=== PATIENT | female | born 1935 | race Two or more races ===

== ENCOUNTER 2017-01-12 08:39 | Emergency (ER) | payer BC, OTHER ==
[2017-01-12 09:03] VITALS: BMI 26.9
[2017-01-12] MEDS ORDERED: LACTULOSE 20 GM/30 ML UDC (FOR ORAL USE ONLY) PO ONE (09:23)
--- NOTE | 2017-01-12 09:23 | PDOC ---
History of Present Illness - General Chief Complaint: Constipation Stated Complaint: VOMITING/NO BM 4 DAYS Time Seen by Provider: 01/12/17 09:06 Past History - Past Medical History Allergies/Adverse Reactions: Allergies Allergy/AdvReac Type Severity Reaction Status Date / Time No Known Allergies Allergy Verified 01/12/17 08:53 Home Medications: Ambulatory Orders Gabapentin 300 mg PO Q12H 08/02/14 Gabapentin 600 mg PO HS 08/02/14 Levothyroxine [Synthroid -] 125 mcg PO DAILY 08/02/14 Valsartan 160 mg PO DAILY 08/02/14 Docusate Sodium [Colace -] 100 mg PO DAILY #30 capsule 01/12/17 Sennosides [Senna] 2 tab PO DAILY #60 tablet 01/12/17 HTN: Yes Other medical history: neuropathy - Psycho/Social/Smoking Cessation Hx Anxiety: No Suicidal Ideation: No Smoking History: Never smoked Information on smoking cessation initiated: No Hx Alcohol Use: No Drug/Substance Use Hx: No Substance Use Type: None *Physical Exam - Vital Signs Last Vital Signs Temp Pulse Resp BP Pulse Ox 98.2 F 76 18 155/91 99 01/12/17 08:51 01/12/17 08:51 01/12/17 08:51 01/12/17 08:51 01/12/17 08:51 ED Treatment Course - LABORATORY CBC & Chemistry Diagram: 01/12/17 11:55 01/12/17 11:55 Medical Decision Making - Medical Decision Making 01/12/17 09:13 81 yo F, h/o HTN, neuropathy, presents with constipation. Patient reports that she has not had a bowel movement in 4 days despite having an urge. No bright red blood per rectum, melena, abdominal pain, rectal pain, fever or chills. Did have nausea this a.m. that has since resolved. Patient states at baseline she has approximately 3 bowel movements per week. No recent change in diet. No new medications. See exam Constipation No new meds/narcotic use/change in diet No prior abd surgery Not impacted on exam Abd benign -XR -bowel regimen in ED>reassess 01/12/17 10:18 XR w/ sig stool, no e/o obstruction. Bowel regimen in progress>reassess 01/12/17 11:42 Pt s/p bowel regimen w/ no BM in ED. Currently crying as she feels uncomfortable per pt. As per d/w ED atg, will send labs and CT at this point 01/12/17 14:23 CT and labs unremarkable. Pt works that she was able to have one small to moderate bowel movement, feels a bit better and would prefer to go home with a bowel regimen versus further observation in ED. Will discharge in the care of son. Reasons to return discussed with patient and family 01/12/17 14:57 *DC/Admit/Observation/Transfer Diagnosis at time of Disposition: Constipation Qualifiers: Constipation type: unspecified constipation type Qualified Code(s): K59.00 - Constipation, unspecified - Discharge Dispostion Disposition: HOME Condition at time of disposition: Improved - Prescriptions Prescriptions: Docusate Sodium [Colace -] 100 mg PO DAILY #30 capsule Sennosides [Senna] 2 tab PO DAILY #60 tablet - Patient Instructions Printed Discharge Instructions: Constipation Additional Instructions: Please take medications as prescribed. Also drink plenty of fluids and leafy greens to assist with bowel movements. Return to ER for worsening of symptoms. Otherwise follow-up with PMD
[2017-01-12] MEDS ORDERED: LACTULOSE 20 GM/30 ML UDC (FOR ORAL USE ONLY) ONE (09:28)
[2017-01-12] MEDS ORDERED: MINERAL OIL ENEMA 133 ML ENEMA PR ONE (10:18)
[2017-01-12] MEDS ORDERED: SODIUM CHLORIDE 500 ML IV STA (11:43)
[2017-01-12 12:02] LABS: BASOPHIL 0.9 % (0-2.0); EOSINOPHIL 3.3 % (0-4.5); MCH 25.7 pg (25.7-33.7); MCHC 32.8 g/dl (32.0-36.0); MEAN CELL VOLUME 78.4 fl (80-96); MEAN PLT VOLUME 8.3 fl (7.5-11.1); PLATELET COUNT 277 K/MM3 (134-434); RDW 14.2 % (11.6-15.6); WHITE BLOOD COUNT 7.2 K/mm3 (4.0-10.0)
[2017-01-12] MEDS ORDERED: METOCLOPRAMIDE HCL INJECTION 10 MG/2 ML VIAL IVPB ONE (12:17)
[2017-01-12 12:20] LABS: ALBUMIN 4.5 g/dl (3.4-5.0); ALK PHOS 110 U/L (45-117); ANION GAP 11 (8-16); BILIRUBIN,TOTAL 0.4 mg/dL (0.2-1.0); CALCIUM 10.7 mg/dL (8.5-10.1); CO2 25 mmol/L (21-32); CREATININE 0.8 mg/dL (0.55-1.02); GLUCOSE,RANDOM 126 mg/dL (74-106); SGOT/AST 23 U/L (15-37); SGPT/ALT 26 U/L (12-78); TOT PROT 8.1 g/dl (6.4-8.2)
[2017-01-12] MEDS ORDERED: METOCLOPRAMIDE HCL INJECTION 10 MG/2 ML VIAL ONE (12:20)
[2017-01-12 12:28] LABS: URINE APPEARANCE CLEAR; URINE BILIRUBIN NEGATIVE (NEGATIVE); URINE BLOOD NEGATIVE (NEGATIVE); URINE COLOR LTYELLOW; URINE GLUCOSE (UA) NEGATIVE (NEGATIVE); URINE KETONE TRACE (NEGATIVE); URINE LEUK ESTERASE NEGATIVE (NEGATIVE); URINE NITRITE NEGATIVE (NEGATIVE); URINE PROTEIN NEGATIVE (NEGATIVE); URINE UROBILINOGEN NEGATIVE mg/dL (0.2-1.0)
[2017-01-12 14:52] VITALS: BP 155/89; PULSE 82; TEMP 98.3
== END 2017-01-12 15:17 | disposition home or self-care (01) ==
LOC: JER 08:39
PROC: 3E033GC Introduction of Other Therapeutic Substance into Peripheral Vein, Percutaneous Approach (ICD-10-PCS; principal; 2017-01-12)
PROC: 3E0337Z Introduction of Electrolytic and Water Balance Substance into Peripheral Vein, Percutaneous Approach (ICD-10-PCS; 2017-01-12)
DX: K59.00 Constipation, unspecified (principal); I10 Essential (primary) hypertension; G62.9 Polyneuropathy, unspecified
CPT/HCPCS: 36415; 74000-TC; 74177-TC; 80053; 81003; 85025; 96361; 96374; 99283-25

== ENCOUNTER 2019-04-28 16:07 | Inpatient (IN) | payer BC, OTHER ==
--- NOTE | 2019-04-28 16:16 | PDOC ---
Rapid Medical Evaluation Time Seen by Provider: 04/28/19 16:12 Medical Evaluation: Allergies Allergy/AdvReac Type Severity Reaction Status Date / Time No Known Allergies Allergy Verified 01/12/17 08:53 04/28/19 16:13 [place] [facility] [place] PE: Lungs CTAB. RLE swollen and ecchymotic Orders: cardiac w/u and ankle xray Patient will proceed to ED for further evaluation. Discharge Disposition - Diagnosis Syncope and collapse - Referrals - Patient Instructions - Post Discharge Activity
--- NOTE | 2019-04-28 16:31 | PDOC ---
History of Present Illness - General Chief Complaint: Syncope/Near Syncope Stated Complaint: SYNCOPE Time Seen by Provider: 04/28/19 16:12 History Source: Patient Exam Limitations: No Limitations - History of Present Illness Initial Comments: 04/28/19 16:31 Cecille Mckinley is an 83F with PMH HTN, neuropathy, and thyroid disease presenting with mechanical fall and R ankle injury. Patient and son at bedside report that she was walking home from a [place] party on Apr 24, was getting into a car, but then tripped on the sidewalk and fell backwards, twisting her R ankle. Caught herself on the door of the car, went down slowly, firmly denies LOC, head injury, or other bodily injury. Denies prodromal symptoms including fever, dizziness, seizure. EMS called, but patient refused to go to hospital at that time. Since then, has had difficulty with ambulating at home without assistance 2/2 pain, has been using ice and taking Tylenol for pain control. Normally ambulates with a cane at baseline. Went to urgent care who referred her to ED for further evaluation. Denies chest pain, SOB, N/V/C/D, abd pain, [place], vision changes, injury/pain to other parts of her body. Normally highly functional at home, exercises and dances routinely. PMD Dr. Pena. Has known history of LBBB on prior ECG. Past History - Past Medical History Allergies/Adverse Reactions: Allergies Allergy/AdvReac Type Severity Reaction Status Date / Time No Known Allergies Allergy Verified 04/28/19 16:14 Home Medications: Ambulatory Orders Gabapentin 600 mg PO TID 08/02/14 Levothyroxine [Synthroid -] 150 mcg PO DAILY 08/02/14 Valsartan/Hydrochlorothiazide [Valsartan-Hctz 320-25 mg Tab] 1 each PO DAILY 10/11 COPD: No HTN: Yes - Immunization History Immunization Up to Date: Yes - Psycho Social/Smoking Cessation Hx Smoking History: Never smoked Have you smoked in the past 12 months: No Information on smoking cessation initiated: No Hx Alcohol Use: No Drug/Substance Use Hx: No Substance Use Type: None Review of Systems - Review of Systems Able to Perform ROS?: Yes Constitutional: No: Symptoms Reported HEENTM: No: Symptoms Reported Respiratory: No: Symptoms reported Cardiac (ROS): No: Symptoms Reported ABD/GI: No: Symptoms Reported : No: Symptoms Reported Musculoskeletal: Yes: Joint Pain (R ankle), Joint Swelling, Muscle Pain (R foot) Integumentary: Yes: Bruising, Erythema Neurological: No: Symptoms reported Endocrine: No: Symptoms Reported Hematologic/Lymphatic: No: Symptoms Reported All Other Systems: Reviewed and Negative *Physical Exam - Vital Signs Last Vital Signs Temp Pulse Resp BP Pulse Ox 98.2 F 82 16 177/77 H 99 04/28/19 16:14 04/28/19 16:14 04/28/19 16:14 04/28/19 16:14 04/28/19 16:14 - Physical Exam Comments: 04/28/19 17:35 RLE exam: Has ecchymosis, calor, rubor, and swelling notable to R ankle. Limited ROM at R ankle compared to L ankle Non-tender to palpation DP pulse 2+, skin warm and dry Moves leg spontaneously down to toes Sensation intact to LT from thigh to toes General Appearance: Yes: Nourished, Appropriately Dressed. No: Apparent Distress HEENT: positive: EOMI, SKY, Normal ENT Inspection, Normal Voice, Symmetrical, Pharynx Normal, Hearing Grossly Normal. negative: Scleral Icterus (R), Scleral Icterus (L), Muffled/Hoarse voice Neck: positive: Trachea midline, Normal Thyroid, Supple. negative: Tender, Rigid, Decreased range of motion, Lymphadenopathy (R), Lymphadenopathy (L) Respiratory/Chest: positive: Lungs Clear, Normal Breath Sounds. negative: Chest Tender, Respiratory Distress, Accessory Muscle Use, Crackles, Rales, Rhonchi, Stridor, Wheezing Cardiovascular: positive: Regular Rhythm, Regular Rate. negative: Murmur Vascular Pulses: Dorsalis-Pedis (R): 2+, Doralis-Pedis (L): 2+ Gastrointestinal/Abdominal: positive: Normal Bowel Sounds, Soft. negative: Tender, Organomegaly, Guarding, Rebound Musculoskeletal: positive: Normal Inspection. negative: CVA Tenderness Extremity: positive: Swelling. negative: Normal Range of Motion, Tender, Coldness, Cyanosis Integumentary: positive: Normal Color, Dry, Warm Neurologic: positive: Fully Oriented, Alert, Normal Mood/Affect, Normal Response , Motor Strength 5/5 Procedures - Splinting Splint Location: Right: Ankle Pre-Proc Neuro Vasc Exam: normal Hand-Made Type: orthoglass Splint Type: Yes: Sugar Tong, Posterior Post-Proc Neuro Vasc Exam: normal, unchanged from pre-exam Arcenio Bandage: 3" Sling: No Complications: No Post splint xray: No Good repositioning: Yes ED Treatment Course - LABORATORY CBC & Chemistry Diagram: 04/28/19 18:50 04/28/19 18:50 Medical Decision Making - Medical Decision Making 04/28/19 16:31 Cecille Mckinley is an 83F with PMH HTN, neuropathy, and thyroid disease presenting with mechanical fall and ankle injury. Patient presents with mechanical fall and R ankle injury. Patient an excellent historian, denies LOC or other injury, not on AC, low concern for ICH. Pelvis stable, no midline spinal tenderness, no evidence of bony deformity or other injury elsewhere. ECG shows LBBB with HR 70, QRS 150, QTc 444. Called PMD who confirms this is not new, low concern for cardiac etiology of fall. Getting R ankle and foot XR. Will likely splint and f/u with ortho outpatient. 04/28/19 17:37 XR results: Bimalleolar fracture with mild displacement and questionable mild widening of the ankle mortise, distance between the talus and medial malleolus. Bimalleolar soft tissue swelling, lateral more than medial. Status post osteotomy in the distal shaft of the first metatarsal bone and base of the first proximal phalanx. 04/28/19 17:[address] Live with orthopedic surgery for consultation. 04/28/19 17:51 Dr. Live would like to evaluate her for operative intervention tomorrow. Would like NPO after midnight, posterior splint, admission. Notified [facility] admitting team for admission. IV, CXR, ECG, pre-op labs ordered. 04/28/19 18:38 Discussed plan of care with patient using cake decorator, addressed patient concerns and risks involved with going home. Patient agrees to stay for evaluation in the morning. RLE posterior ankle splint with sugar tong placed. Patient tolerated procedure well, neurovascular intact. 04/28/19 20:24 Discussed admission to Med-Surg with Drs. Giron and Caio with admitting team, good for admission under Dr. Carmona. K 2.9, admitting team notified. 04/28/19 22:58 Patient tremulous and shaking, rectal temp 98F, BGM 98. Observed at start of episode, says she was cold, then suddenly had BUE tremors with no BLE tremors. RLE examined, splint is well-fitted and foot neurovascular intact. Discussed with patient, does not know what is happening to her, has never had this happen before. Tried to urinate, unable to do so. US shows bladder full, will place Elkins. Repeat ECG shows LBBB with frequent PVCs, baseline worse 2/2 shaking, HR 71, QRS 142, QTc 469, no ischemic changes or TWI. 04/28/19 23:10 300cc clear yellow urine in Elkins bag consistent with retention. Repeat exam shows no evidence of saddle anesthesia or lower back tenderness. Suspicious of delirium given age and unknown environment, but patient back to baseline at this time. Discussed with Dr. Giron, patient may have history of anxiety. Dr. Kearney updated of patient status. Discharge - Discharge Information Problems reviewed: Yes Clinical Impression/Diagnosis: Syncope and collapse Malleolar fracture Qualifiers: Encounter type: initial encounter Fracture type: closed Laterality: right Qualified Code(s): S82.891A - Other fracture of right lower leg, initial encounter for closed fracture Condition: Stable Disposition: HOME - Admission No - Follow up/Referral - Patient Discharge Instructions - Post Discharge Activity
--- NOTE | 2019-04-28 17:27 | PDOC ---
Attending Attestation - Resident Resident Name: Justin Alexander - ED Attending Attestation I have performed the following: I have examined & evaluated the patient, The case was reviewed & discussed with the resident, I agree w/resident's findings & plan, Exceptions are as noted - HPI HPI: 04/28/19 17:05 83yo female with R ankle pain. Pt does walk with a cane but states she had a mechanical fall on () when she was getting into a car. Pt states she fell backwards and twisted her ankle. Pt states she was eval by EMS and decided she did not want to be seen in the ER. States she walked home after the fall. Pt states she was seen at urgent care today because of swelling and ecchymosis and told to come to the ER for eval. Pt denies syncope, near syncope , cp/sob, lightheaded or dizziness before or since the fall. Pt c/o R lateral malleolus and distal fibula ttp. FROM of the joint. No other ocmplaints. - Physicial Exam PE: 04/28/19 17:27 Gen: aaox3, nad heart: +s1s2 reg lungs: cta b/l abd: soft, nt/nd +bs ext: R ankle swelling, ecchymosis to b/l malleoli, distal fibula ttp, proximal tib/fib nontender, from of the ankle, pedal pulses intact, sensation intact, brisk cap refill, neg anterior drawer, ankle is stable. neuro: cn ii-xii grossly intact, no focal deficits - Medical Decision Making 04/28/19 17:28 a/p: 83yo female with R ankle pain -LBBB is old per Dr. Krishnan -will send for xray -pt denies wanting pain meds -has been taking tylenol for pain with relief -will monitor and reassess -pt will need ortho follow up 04/28/19 17:46 pt with a bimalleolar fx call placed to orthopedics 04/28/19 17:53 resident discussed the case with orthopedics requests admission for poss OR tomorrow will place in a splint will send labs will admit to [facility] 04/28/19 18:18 cxr clear, mild cardiomegaly Heart Score/ECG Review - ECG Intrepretation Comment:: 04/28/19 17:29 sinus at 70, LBBB, no acute st/t wave findings
[2019-04-28] MEDS ORDERED: ACETAMINOPHEN 1000 MG/100 ML VIAL (NON FORMULARY) IVPB ONE (17:55)
[2019-04-28] MEDS ORDERED: ACETAMINOPHEN INJECTION 100 ML IVPB ONE (18:55)
[2019-04-28 19:01] LABS: EOS % 1.9 % (0-4.5); HEMATOCRIT 30.2 % (32.4-45.2); HEMOGLOBIN 9.6 GM/dL (10.7-15.3); LYMPH % 16.3 % (8-40); MCHC 31.9 g/dl (32.0-36.0); MEAN CELL VOLUME 72.2 fl (80-96); MEAN PLT VOLUME 8.2 fl (7.5-11.1); MONO % 6.8 % (3.8-10.2); PLATELET COUNT 437 K/MM3 (134-434); RBC 4.18 M/mm3 (3.60-5.2); RDW 16.4 % (11.6-15.6); WHITE BLOOD COUNT 8.6 K/mm3 (4.0-10.0)
[2019-04-28 19:16] LABS: INR 1.08 (0.83-1.09); PROTHROMBIN TIME (PATIENT) 12.7 SEC (9.7-13.0)
[2019-04-28 19:18] LABS: ACTIVATED PTT 34.8 SECONDS (25.2-36.5)
[2019-04-28 19:39] LABS: ALBUMIN 3.7 g/dl (3.4-5.0); BILIRUBIN,TOTAL 0.4 mg/dL (0.2-1); BLOOD UREA NITROGEN 15.2 mg/dL (7-18); CALCIUM 9.7 mg/dL (8.5-10.1); CREATININE 1.1 mg/dL (0.55-1.3); TOT PROT 7.4 g/dl (6.4-8.2)
[2019-04-28 19:53] LABS: POTASSIUM 2.9 mmol/L (3.5-5.1)
[2019-04-28] MEDS ORDERED: ACETAMINOPHEN 325 MG TABLET (FP) PO PRN (20:05)
[2019-04-28] MEDS ORDERED: POTASSIUM CHLORIDE TABS 20 MEQ TABLET.ER (FP) PO ONE ×2 (20:13→20:16)
[2019-04-28] MEDS ORDERED: amLODIPine BESYLATE 5 MG TABLET (FP) ONE (20:16)
--- NOTE | 2019-04-28 20:19 | PN ---
Teaching Attending Note Name of Resident: Dorita Kearney ATTENDING PHYSICIAN STATEMENT I saw and evaluated the patient. I reviewed the resident's note and discussed the case with the resident. I agree with the resident's findings and plan as documented. SUBJECTIVE: 83-year-old woman status post Twisting of right ankle on 04/24. She was running to catch her bus when she twisted her ankle. She did not seek medical attention at that time and decided to walk home after The incident. Denied any significant pain. Today she was seen at urgent care because of worsening swelling and ecchymosis of her ankle and was told to come to the ER for evaluation. Denied any syncope or dizziness prior to the fall. X-ray of her ankle revealed bilateral malleolar fracture with mild displacement. Bimalleolar soft tissue swelling, lateral more than medial. OBJECTIVE: Last Vital Signs Temp Pulse Resp BP Pulse Ox 97.9 F 64 17 176/70 H 100 04/28/19 19:15 04/28/19 19:15 04/28/19 19:15 04/28/19 19:15 04/28/19 19:15 GENERAL: Well developed, well nourished. Awake and alert. No acute distress. HEENT: Normocephalic, atraumatic. PERRLA, EOMI. No conjunctival pallor. Sclera are non- icteric. Moist mucous membranes. Oropharynx is clear. NECK: Supple. Full ROM. No JVD. Carotid pulses 2+ and symmetric, without bruits. No thyromegaly. No lymphadenopathy. CARDIOVASCULAR: Regular rate and rhythm. No murmurs, rubs, or gallops. Distal pulses are 2+ and symmetric. PULMONARY: No evidence of respiratory distress. Lungs clear to auscultation bilaterally. No wheezing, rales or rhonchi. ABDOMINAL: Soft. Non-tender. Non-distended. No rebound or guarding. No organomegaly. Normoactive bowel sounds. MUSCULOSKELETAL Normal range of motion at all joints. No bony deformities or tenderness. No CVA tenderness. EXTREMITIES: Right ankle was wrapped, toes are warm with good sensation and movement SKIN: Warm and dry. Normal capillary refill. No rashes. No jaundice. PSYCHIATRIC: Cooperative. Good eye contact. Appropriate mood and affect. Abnormal Lab Results 04/28/19 04/28/19 18:50 18:50 Hgb 9.6 L Hct 30.2 L D MCV 72.2 L MCH 23.0 L D MCHC 31.9 L RDW 16.4 H Plt Count 437 H D Sodium 133 L Potassium 2.9 L* Random Glucose 127 H Imaging reviewed Imaging reviewed x-ray of right foot noted to have screw in the distal portion of first metatarsal and proximal portion of proximal phalanx. Bilateral malleoli are fracture. EKG noted to have left bundle branch block ASSESSMENT AND PLAN: 83-year-old woman status post mechanical fall, twisting of right ankle and bilateral malleolar fracture with mild displacement. Admit to [facility] Right ankle was splinted Orthopedics consultation Pain management with morphine IV Coagulation studies and type and screen In light of left bundle branch block found an EKG obtain transthoracic echo and consult cardiology for medical clearance prior to any orthopedic intervention Bedrest and fall precautions Mild IV fluid hydration #Electrolyte disturbanceshyponatremia and hypokalemiamay be secondary to hydrochlorothiazide Hold hydrochlorothiazide Supplement potassium -Repeat chemistry including magnesium and phosphate #Severe hypertensionasymptomatic Give home dose of losartan and give amlodipine 5 mg avoid electrolyte disturbances #Severe anemia, microcytic Monitor CBC closely Send ferritin, iron studies, vitamin B12 Red blood smear Send stool for fecal occult blood #Hypothyroidism Send TSH Continue home dose Synthroid Heparin subcu for DVT prophylaxis
[2019-04-28 20:20] LABS: MAGNESIUM 2.2 mg/dL (1.8-2.4)
[2019-04-28] MEDS: amLODIPine BESYLATE 5 MG TABLET (FP) PO SCH (20:20)
--- NOTE | 2019-04-28 20:23 | HP ---
CHIEF COMPLAINT: R ankle swelling and bruising PCP: Dr. 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 Pt reports falling backwards and twisting her angle while trying to get into a vehicle on ([place]), 4 days ago. Pt refused medical intervention at the time. Today, pt went to urgent care due to swelling and echymosis and was told to go to ED for evaluation. Pt denies LE pain, numbeness and tingingling, chest pain, abdominal pain, SOB, CALIXTO or LOC. Pt reports she had been icing and elevating her leg however the swelling and bruising continues to worsen. Pt uses a cane to ambulate as reccomended by her doctor, but states she is very steady on her feet and regularly dances ER course was notable for: (1) EKG with LBBB (old), QTc 444 (2) XR R ankle showing bimalleolar fx with mild displacement and widening of the distance between the medial malleolus and talus (3) Hypo-kalemia 2.9 Recent Travel: denies PAST MEDICAL HISTORY: HTN, neuropathy (L leg only per pt), hypothyroidism PAST SURGICAL HISTORY: Right toe surgery along time ago Social History: Smoking: denies Alcohol: denies Drugs: denies Used to work as a customer care representative, retired 4 years ago Allergies No Known Allergies Allergy (Verified 04/28/19 16:14) HOME MEDICATIONS: Home Medications Medication Instructions Recorded Gabapentin 600 mg PO TID 08/02/14 Levothyroxine [Synthroid -] 150 mcg PO DAILY 08/02/14 Valsartan/Hydrochlorothiazide 1 each PO DAILY 04/28/19 [Valsartan-Hctz 320-25 mg Tab] REVIEW OF SYSTEMS CONSTITUTIONAL: Absent: fever, chills, diaphoresis, generalized weakness, malaise, loss of appetite, weight change HEENT: Absent: rhinorrhea, nasal congestion, throat pain, throat swelling, difficulty swallowing, mouth swelling, ear pain, eye pain, visual changes CARDIOVASCULAR: Absent: chest pain, syncope, palpitations, irregular heart rate, lightheadedness , peripheral edema RESPIRATORY: Absent: cough, shortness of breath, dyspnea with exertion, orthopnea, wheezing, stridor, hemoptysis GASTROINTESTINAL: Absent: abdominal pain, abdominal distension, nausea, vomiting, diarrhea, constipation, melena, hematochezia GENITOURINARY: Absent: dysuria, frequency, urgency, hesitancy, hematuria, flank pain, genital pain MUSCULOSKELETAL: swelling and bruising at R ankle Absent: myalgia, arthralgia, joint swelling, back pain, neck pain SKIN: Absent: rash, itching, pallor HEMATOLOGIC/IMMUNOLOGIC: Absent: easy bleeding, easy bruising, lymphadenopathy, frequent infections ENDOCRINE: Absent: unexplained weight gain, unexplained weight loss, heat intolerance, cold intolerance NEUROLOGIC: Absent: headache, focal weakness or paresthesias, dizziness, unsteady gait, seizure, mental status changes, bladder or bowel incontinence PSYCHIATRIC: Absent: anxiety, depression, suicidal or homicidal ideation, hallucinations. PHYSICAL EXAMINATION Vital Signs - 24 hr 04/28/19 04/28/19 04/28/19 16:14 17:20 19:15 Temperature 98.2 F 97.9 F Pulse Rate 82 Pulse Rate [ 64 Left Apical] Respiratory 16 17 Rate Blood Pressure 177/77 H Blood Pressure 176/70 H [Right Arm] O2 Sat by Pulse 99 99 100 Oximetry (%) GENERAL: Awake, alert, and fully oriented, in no acute distress. HEAD: Normal with no signs of trauma. EYES: Pupils equal, round and reactive to light, extraocular movements intact, sclera anicteric, conjunctiva clear. No lid lag. EARS, NOSE, THROAT: Ears normal, nares patent, oropharynx clear without exudates. Moist mucous membranes. NECK: Normal range of motion, supple without lymphadenopathy, JVD, or masses. LUNGS: Breath sounds equal, clear to auscultation bilaterally. No wheezes, and no crackles. No accessory muscle use. HEART: Regular rate and rhythm, normal S1 and S2, 2/6 systolic murmur heard best at R sternal border. ABDOMEN: Soft, nontender, not distended, normoactive bowel sounds, no guarding, no rebound, no masses. No hepatomegaly or splenomegaly. MUSCULOSKELETAL: Normal range of motion at all joints. No bony deformities or tenderness. No CVA tenderness. UPPER EXTREMITIES: 2+ pulses, warm, well-perfused. No cyanosis. No clubbing. No peripheral edema. LOWER EXTREMITIES: 2+ pulses, warm, well-perfused. No calf tenderness. No peripheral edema. Good DP pulse on R foot with normal capillary refill and sensation intact. Swollen compared to L but full ROM with minimal pain, brusing on medial and lateral surfaces of ankle. NEUROLOGICAL: Cranial nerves II-XII intact. Normal speech. Normal gait. PSYCHIATRIC: Cooperative. Good eye contact. Appropriate mood and affect. SKIN: Warm, dry, normal turgor, no rashes or lesions noted, normal capillary refill. Ecchymosis on R ankle. Laboratory Results - last 24 hr 04/28/19 04/28/19 04/28/19 18:50 18:50 18:50 WBC 8.6 RBC 4.18 Hgb 9.6 L Hct 30.2 L D MCV 72.2 L MCH 23.0 L D MCHC 31.9 L RDW 16.4 H Plt Count 437 H D MPV 8.2 Absolute Neuts (auto) 6.4 Neutrophils % 74.0 Lymphocytes % 16.3 Monocytes % 6.8 Eosinophils % 1.9 Basophils % 1.0 Nucleated RBC % 0 PT with INR 12.70 INR 1.08 PTT (Actin FS) 34.8 Sodium Potassium Chloride Carbon Dioxide Anion Gap BUN Creatinine Est GFR (CKD-EPI)AfAm Est GFR (CKD-EPI)NonAf Random Glucose Calcium Magnesium Total Bilirubin AST ALT Alkaline Phosphatase Creatine Kinase 141 Troponin I < 0.02 Total Protein Albumin 04/28/19 18:50 WBC RBC Hgb Hct MCV MCH MCHC RDW Plt Count MPV Absolute Neuts (auto) Neutrophils % Lymphocytes % Monocytes % Eosinophils % Basophils % Nucleated RBC % PT with INR INR PTT (Actin FS) Sodium 133 L Potassium 2.9 L* Chloride 98 Carbon Dioxide 24 Anion Gap 10 BUN 15.2 Creatinine 1.1 Est GFR (CKD-EPI)AfAm 53.02 Est GFR (CKD-EPI)NonAf 45.74 Random Glucose 127 H Calcium 9.7 Magnesium 2.2 Total Bilirubin 0.4 AST 23 ALT 20 Alkaline Phosphatase 104 Creatine Kinase Troponin I Total Protein 7.4 Albumin 3.7 ASSESSMENT/PLAN: Pt is a 83 y/o F presenting to ED complaining for R ankle swelling and echymosis. Pt reports falling backwards and twisting her angle while trying to get into a vehicle on ([place]), 4 days ago. # Bimalleolar fracture right ankle - XR R ankle showing soft tissue edema and bimalleolar fx w/ mild displacement and widening of the space between the medial malleolus and talus - Dr. Live consulted by ED, recommendations appreciated - NPO at midnight for possible OR in AM - coags and type and screen prior to OR - Posterior splint placed - RCRI score 0 - Suarez score 0.9% (bc HTN) - PO Tylenol 650 PO q4 prn for pain> can also give morphine IV prn as needed for pain - Echo - Cardio consult for clearance prior to surgery because patient has history of LBBB and abnormal ECG, patient has never undergone general anesthesia before or been intubated - bedrest and fall precautions #HTN -asymptomatic but pt with BPs in the 190s/70s in ED - hypokalemia and hypertensive - holding home HCTZ - continue valsartan 320mg daily - add Amlodipine 5mg daily to avoid electrolyte disturbances # Microcytic anemia Pt reports she had an unremarkable endoscopy and colonoscopy 1 year ago. - Pt denies hx of anemia - f/u iron studies, ferritin, TIBC, and B12 - follow CBC closely and send for smear - f/u FOBT # Hypo K+ and Hypo Na+ - May be 2/2 HCTZ use (holding), monitor and replete PRN. - 40 Meq PO K-dur admin in ED - 10 Meq in 100cc @ 100cc/h given x3 - IVNS + 20 Meq K+ @ 83cc/h - f/u repeat CMP w/ mag and phos # Hypothyroidism - f/u TSH - Continue home dose Synthroid # FEN - IV NS + 20 Meq KCl @83cc/h - monitor HypoK+, replete PRN - NPO at midnight for OR in AM # PPx - DVT ppx Heparin SQ TID # Dispo- Admit to med-surg for eval and possible sx in AM with Dr. Live Visit type - Emergency Visit Emergency Visit: Yes Care time: The patient presented to the Emergency Department on the above date and was hospitalized for further evaluation of their emergent condition. - New Patient This patient is new to me today: Yes Date on this admission: 04/28/19 - Critical Care Critical Care patient: No ATTENDING PHYSICIAN STATEMENT I saw and evaluated the patient. I reviewed the resident's note and discussed the case with the resident. I agree with the resident's findings and plan as documented. SUBJECTIVE: OBJECTIVE: ASSESSMENT AND PLAN:
[2019-04-28] MEDS ORDERED: KCL 10 MEQ IVPB 10 MEQ/100 ML INFUS.BAG IVPB ONE ×2 (20:57→21:50)
[2019-04-28] MEDS: KCL 10 MEQ IVPB 10 MEQ/100 ML INFUS.BAG IVPB SCH ×2 (21:14→23:14)
[2019-04-29 00:02] LABS: URINE APPEARANCE CLEAR; URINE BILIRUBIN NEGATIVE (NEGATIVE); URINE COLOR YELLOW; URINE GLUCOSE (UA) NEGATIVE (NEGATIVE); URINE KETONE NEGATIVE (NEGATIVE); URINE LEUK ESTERASE NEGATIVE (NEGATIVE); URINE NITRITE NEGATIVE (NEGATIVE); URINE PROTEIN NEGATIVE (NEGATIVE); URINE UROBILINOGEN 0.2 mg/dL (0.2-1.0)
[2019-04-29] MEDS ORDERED: KCL 10 MEQ IVPB 10 MEQ/100 ML INFUS.BAG IVPB ONE (00:27)
[2019-04-29] MEDS: KCL 10 MEQ IVPB 10 MEQ/100 ML INFUS.BAG IVPB SCH (00:29)
[2019-04-29] MEDS ORDERED: MORPHINE SULFATE 2 MG/ML VIAL IVPUSH PRN (01:09)
[2019-04-29] MEDS: SODIUM CHLORIDE 0.9%/KCL 20 MEQ/1,000 ML INFUS.BAG IV SCH ×3 (01:40→17:57)
[2019-04-29 03:42] VITALS: BMI 26.5
[2019-04-29] MEDS ORDERED: PATIENT'S OWN MEDICATION (NON-FORMULARY) (Gabapentin [Gabapentin] 600 MG) PO SCH (06:00)
[2019-04-29] MEDS: GABAPENTIN 300 MG CAPSULE (FP) PO SCH ×3 (06:10→21:24)
[2019-04-29] MEDS: HEPARIN NA (PORCINE) 5,000 UNITS/ML 1ML VIAL SQ SCH ×3 (06:10→21:23)
[2019-04-29] MEDS ORDERED: LEVOTHYROXINE NA 150 MCG TABLET PO SCH (07:00)
[2019-04-29 08:02] LABS: BASO % 0.9 % (0-2.0); EOS % 2.6 % (0-4.5); HEMATOCRIT 29.3 % (32.4-45.2); HEMOGLOBIN 9.5 GM/dL (10.7-15.3); LYMPH % 15.2 % (8-40); MCH 23.2 pg (25.7-33.7); MCHC 32.3 g/dl (32.0-36.0); MEAN CELL VOLUME 71.8 fl (80-96); MEAN PLT VOLUME 9.1 fl (7.5-11.1); MONO % 6.4 % (3.8-10.2); NEUT % 74.9 % (42.8-82.8); PLATELET COUNT 377 K/MM3 (134-434); RBC 4.09 M/mm3 (3.60-5.2); RDW 16.1 % (11.6-15.6); WHITE BLOOD COUNT 6.3 K/mm3 (4.0-10.0)
[2019-04-29 08:07] LABS: INR 1.11 (0.83-1.09); PROTHROMBIN TIME (PATIENT) 13.1 SEC (9.7-13.0)
[2019-04-29 08:10] LABS: ACTIVATED PTT 33.4 SECONDS (25.2-36.5)
[2019-04-29 08:44] LABS: ALBUMIN 3.4 g/dl (3.4-5.0); BILIRUBIN,TOTAL 0.5 mg/dL (0.2-1); CALCIUM 9.6 mg/dL (8.5-10.1); CREATININE 0.9 mg/dL (0.55-1.3); MAGNESIUM 2.1 mg/dL (1.8-2.4); PHOSPHOROUS 2.6 mg/dL (2.5-4.9); POTASSIUM 4.4 mmol/L (3.5-5.1)
--- NOTE | 2019-04-29 09:16 | EKG ---
Test Reason : Blood Pressure : / mmHG Vent. Rate : 070 BPM Atrial Rate : 070 BPM P-R Int : 168 ms QRS Dur : 150 ms QT Int : 412 ms P-R-T Axes : 023 -44 114 degrees QTc Int : 444 ms NORMAL SINUS RHYTHM POSSIBLE LEFT ATRIAL ENLARGEMENT LEFT AXIS DEVIATION NON-SPECIFIC INTRA-VENTRICULAR CONDUCTION BLOCK POSSIBLE LATERAL INFARCT , AGE UNDETERMINED INFERIOR INFARCT , AGE UNDETERMINED ABNORMAL ECG NO PREVIOUS ECGS AVAILABLE Confirmed by MD Jacqui, Korey ([id number]) on 04/29/2019 9:16:19 AM Referred By: Confirmed By:Korey Osman MD
[2019-04-29] MEDS: amLODIPine BESYLATE 5 MG TABLET (FP) PO SCH (09:17)
--- NOTE | 2019-04-29 09:19 | EKG ---
Test Reason : Blood Pressure : / mmHG Vent. Rate : 071 BPM Atrial Rate : 071 BPM P-R Int : 146 ms QRS Dur : 142 ms QT Int : 432 ms P-R-T Axes : 025 -43 125 degrees QTc Int : 469 ms SINUS RHYTHM WITH FREQUENT PREMATURE VENTRICULAR COMPLEXES POSSIBLE LEFT ATRIAL ENLARGEMENT LEFT AXIS DEVIATION LEFT BUNDLE BRANCH BLOCK ABNORMAL ECG WHEN COMPARED WITH ECG OF 28-APR-2019 16:28, PREMATURE VENTRICULAR COMPLEXES ARE NOW PRESENT LEFT BUNDLE BRANCH BLOCK HAS REPLACED NON-SPECIFIC INTRA-VENTRICULAR CONDUCTION BLOCK Confirmed by MD Jacqui, Korey ([id number]) on 04/29/2019 9:18:39 AM Referred By: Confirmed By:Korey Osman MD
[2019-04-29] MEDS ORDERED: VALSARTAN 160 MG TABLET (UD) PO SCH (10:00)
[2019-04-29] MEDS ORDERED: FLU VACCINE QUAD 60 MCG/0.5 ML (MDV 19-20) IM ONE (10:00)
[2019-04-29] MEDS ORDERED: oxyCODONE HCL 5 MG TABLET PO PRN ×2 (10:37→17:27)
[2019-04-29] MEDS ORDERED: ACETAMINOPHEN 325 MG TABLET (FP) PO PRN ×2 (10:38→17:27)
--- NOTE | 2019-04-29 11:15 | ECHO ---
Version: 1 Name: TIARRA CRUM Exam: Adult Echocardiogram Study Date: 04/29/2019, 9:47 AM Age: 83 Years MMode/2D Measurements & Calculations IVSd: 1.50 cm LVIDs: 2.9 cm LVIDd: 4.1 cm LVPWd: 1.17 cm LAV (MOD-bp): 70.2 ml LVOT diam: 1.98 cm Ao root diam: 2.32 cm LA dimension: 3.3 cm Doppler Measurements & Calculations MV E max rogelio: 49.5 cm/sec Med E/e': 10.6 MV A max rogelio: 110.6 cm/sec Med Peak E' Rogelio: 4.7 cm/sec MV E/A: 0.45 Lat E/e': 8.3 Lat Peak E' Rogelio: 6.0 cm/sec MR max P.5 mmHg Ao max P.0 mmHg Ao V2 max: 141.2 cm/sec TR max rogelio: 260.6 cm/sec TR max P.2 mmHg Procedure The study was technically limited with all images being suboptimal in quality. Left Ventricle The left ventricular size, thickness and function are normal. Ejection Fraction = 70%. The transmitr al spectral Doppler flow pattern is suggestive of impaired LV relaxation. Right Ventricle The right ventricle is normal in size and function. Atria Normal left and right atrial size and function. Mitral Valve There is mild mitral annular calcification. There is mild mitral regurgitation. Tricuspid Valve The tricuspid valve is not well visualized. There is mild tricuspid regurgitation. Aortic Valve The aortic valve is normal in structure and function. Mild aortic regurgitation. Pulmonic Valve The pulmonic valve is not well visualized. Great Vessels The aortic root is normal size. Normal aortic arch, descending and ascending aorta. Pericardium/Pleura There is no pericardial effusion. Summary Statements The study was technically limited with all images being suboptimal in quality. The left ventricular size, thickness and function are normal Ejection Fraction = 70%. The right ventricle is normal in size and function. Normal left and right atrial size and function. The transmitral spectral Doppler flow pattern is suggestive of impaired LV relaxation. There is mild mitral annular calcification. There is mild mitral regurgitation. The tricuspid valve is not well visualized. There is mild tricuspid regurgitation. The aortic valve is normal in structure and function. Mild aortic regurgitation. The pulmonic valve is not well visualized. Normal aortic arch, descending and ascending aorta The aortic root is normal size. There is no pericardial effusion. Martir Smith 04/29/2019, 11:14 AM Ordering Physician: IRA MILES Performed By: Karina Greenberg
--- NOTE | 2019-04-29 11:55 | CON.CARD ---
Consult Consult Specialty:: Cardiology Referred by:: Hospitalist Reason for Consultation:: Cardiac evaluation and for clearance - History of Present Illness Chief Complaint: Post fall resulting in right ankle fracture History of Present Illness: Patient is an 83 year old female with underlying history of HTN and hypothyroidism who presented with a mechanical fall resulting in right ankle fracture. Currently cast is applied and she was recommended surgery. However, she is currently reluctant. She stated she was walking home from [place] () and was getting into the car when she tripped on the sidewalk ad fell twisting her right ankle. She denies chest pain, SOB or palpitations. She denies paroxysmal nocturnal dyspnea or orthopnea. She denies fever or chills. She denies nausea, vomiting, diarrhea or abdominal pain. She denies headache or lightheadedness.She was reluctant to come to hospital initially but as she had more difficulty ambulating at home, she initially went to urgent care and was referred for admission. - History Source History Provided By: Patient, Medical Record Limitations to Obtaining History: No Limitations - Past Medical History Cardio/Vascular: Yes: HTN Endocrine: Yes: Hypothyroidism - Alcohol/Substance Use Hx Alcohol Use: No - Smoking History Smoking history: Never smoked Have you smoked in the past 12 months: No Home Medications - Allergies Allergies/Adverse Reactions: Allergies Allergy/AdvReac Type Severity Reaction Status Date / Time No Known Allergies Allergy Verified 04/28/19 16:14 - Home Medications Home Medications: Ambulatory Orders Gabapentin 600 mg PO TID 08/02/14 Levothyroxine [Synthroid -] 150 mcg PO DAILY 08/02/14 Valsartan/Hydrochlorothiazide [Valsartan-Hctz 320-25 mg Tab] 1 each PO DAILY 10/11 Escitalopram Oxalate [Lexapro -] 1 tablet PO DAILY 04/29/19 Family Medical History Family History: Denies Review of Systems - Review of Systems Constitutional: denies: Chills, Fever Cardiovascular: denies: Chest Pain, Palpitations, Shortness of Breath Respiratory: denies: Cough, Hemoptysis, Orthopnea, PND, SOB, SOB on Exertion Gastrointestinal: denies: Abdominal Pain, Constipation, Diarrhea, Melena, Nausea , Rectal Bleeding, Vomiting Genitourinary: denies: Dysuria, Hematuria Musculoskeletal: reports: Joint Pain. denies: Back Pain Neurological: denies: Dizziness, Headache, Seizure, Syncope Vital Signs: Vital Signs Temperature 97.5 F L 04/29/19 09:21 Pulse Rate 78 04/29/19 09:21 Respiratory Rate 20 04/29/19 09:21 Blood Pressure 187/91 H 04/29/19 09:21 O2 Sat by Pulse Oximetry (%) 99 04/29/19 06:00 Eyes: Yes: PERRL HENT: Yes: Atraumatic Neck: Yes: Supple Respiratory: Yes: CTA Bilaterally Gastrointestinal: Yes: Normal Bowel Sounds, Soft. No: Tenderness Cardiovascular: Yes: Regular Rate and Rhythm JVD: No PMI: Non-Displaced Heart Sounds: Yes: S1, S2 Murmur: No: Systolic Murmur Extremities: Yes: Other (Right ankle to knee splint) Edema: No - Other Data Labs, Other Data: CBC, BMP 04/29/19 06:40 04/29/19 06:40 INR, PTT INR 1.11 (0.83-1.09) H 04/29/19 06:40 Troponin, BNP 04/28/19 18:50 Troponin I < 0.02 Laboratory Results - last 24 hr 04/28/19 04/28/19 04/28/19 18:50 18:50 18:50 WBC 8.6 RBC 4.18 Hgb 9.6 L Hct 30.2 L D MCV 72.2 L MCH 23.0 L D MCHC 31.9 L RDW 16.4 H Plt Count 437 H D MPV 8.2 Absolute Neuts (auto) 6.4 Neutrophils % 74.0 Lymphocytes % 16.3 Monocytes % 6.8 Eosinophils % 1.9 Basophils % 1.0 Nucleated RBC % 0 Retic Count PT with INR 12.70 INR 1.08 PTT (Actin FS) 34.8 Sodium Potassium Chloride Carbon Dioxide Anion Gap BUN Creatinine Est GFR (CKD-EPI)AfAm Est GFR (CKD-EPI)NonAf POC Glucometer Random Glucose Calcium Phosphorus Magnesium Iron TIBC Iron Saturation Unsaturated IBC Ferritin Total Bilirubin AST ALT Alkaline Phosphatase Creatine Kinase 141 Troponin I < 0.02 Total Protein Albumin Vitamin B12 Serum Folate TSH Urine Color Urine Appearance Urine pH Ur Specific [place] Urine Protein Urine Glucose (UA) Urine Ketones Urine Blood Urine Nitrite Urine Bilirubin Urine Urobilinogen Ur Leukocyte Esterase Blood Type Antibody Screen 04/28/19 04/28/19 04/28/19 18:50 18:50 22:27 WBC RBC Hgb Hct MCV MCH MCHC RDW Plt Count MPV Absolute Neuts (auto) Neutrophils % Lymphocytes % Monocytes % Eosinophils % Basophils % Nucleated RBC % Retic Count PT with INR INR PTT (Actin FS) Sodium 133 L Potassium 2.9 L* Chloride 98 Carbon Dioxide 24 Anion Gap 10 BUN 15.2 Creatinine 1.1 Est GFR (CKD-EPI)AfAm 53.02 Est GFR (CKD-EPI)NonAf 45.74 POC Glucometer 92 Random Glucose 127 H Calcium 9.7 Phosphorus Magnesium 2.2 Iron TIBC Iron Saturation Unsaturated IBC Ferritin Total Bilirubin 0.4 AST 23 ALT 20 Alkaline Phosphatase 104 Creatine Kinase Troponin I Total Protein 7.4 Albumin 3.7 Vitamin B12 Serum Folate TSH Urine Color Urine Appearance Urine pH Ur Specific [place] Urine Protein Urine Glucose (UA) Urine Ketones Urine Blood Urine Nitrite Urine Bilirubin Urine Urobilinogen Ur Leukocyte Esterase Blood Type O POSITIVE Antibody Screen Negative 04/28/19 04/29/19 04/29/19 23:46 06:40 06:40 WBC 6.3 RBC 4.09 Hgb 9.5 L Hct 29.3 L MCV 71.8 L MCH 23.2 L MCHC 32.3 RDW 16.1 H Plt Count 377 MPV 9.1 D Absolute Neuts (auto) 4.7 Neutrophils % 74.9 Lymphocytes % 15.2 Monocytes % 6.4 Eosinophils % 2.6 Basophils % 0.9 Nucleated RBC % 0 Retic Count PT with INR INR PTT (Actin FS) Sodium Potassium Chloride Carbon Dioxide Anion Gap BUN Creatinine Est GFR (CKD-EPI)AfAm Est GFR (CKD-EPI)NonAf POC Glucometer Random Glucose Calcium Phosphorus Magnesium Iron TIBC Iron Saturation Unsaturated IBC Ferritin Total Bilirubin AST ALT Alkaline Phosphatase Creatine Kinase Troponin I Total Protein Albumin Vitamin B12 Serum Folate TSH Urine Color Yellow Urine Appearance Clear Urine pH 8.0 Ur Specific [place] 1.005 L Urine Protein Negative Urine Glucose (UA) Negative Urine Ketones Negative Urine Blood Negative Urine Nitrite Negative Urine Bilirubin Negative Urine Urobilinogen 0.2 Ur Leukocyte Esterase Negative Blood Type O POSITIVE Antibody Screen 04/29/19 04/29/19 04/29/19 06:40 06:40 06:40 WBC RBC Hgb Hct MCV MCH MCHC RDW Plt Count MPV Absolute Neuts (auto) Neutrophils % Lymphocytes % Monocytes % Eosinophils % Basophils % Nucleated RBC % Retic Count 2.20 H PT with INR 13.10 H INR 1.11 H PTT (Actin FS) 33.4 Sodium 138 Potassium 4.4 Chloride 107 Carbon Dioxide 25 Anion Gap 6 L BUN 10.0 Creatinine 0.9 Est GFR (CKD-EPI)AfAm 67.57 Est GFR (CKD-EPI)NonAf 58.30 POC Glucometer Random Glucose 131 H Calcium 9.6 Phosphorus 2.6 Magnesium 2.1 Iron TIBC Iron Saturation Unsaturated IBC Ferritin Total Bilirubin 0.5 AST 20 ALT 22 Alkaline Phosphatase 100 Creatine Kinase Troponin I Total Protein 7.0 Albumin 3.4 Vitamin B12 Serum Folate 18 H TSH 0.69 Urine Color Urine Appearance Urine pH Ur Specific [place] Urine Protein Urine Glucose (UA) Urine Ketones Urine Blood Urine Nitrite Urine Bilirubin Urine Urobilinogen Ur Leukocyte Esterase Blood Type Antibody Screen 04/29/19 06:40 WBC RBC Hgb Hct MCV MCH MCHC RDW Plt Count MPV Absolute Neuts (auto) Neutrophils % Lymphocytes % Monocytes % Eosinophils % Basophils % Nucleated RBC % Retic Count PT with INR INR PTT (Actin FS) Sodium Potassium Chloride Carbon Dioxide Anion Gap BUN Creatinine Est GFR (CKD-EPI)AfAm Est GFR (CKD-EPI)NonAf POC Glucometer Random Glucose Calcium Phosphorus Magnesium Iron 21 L TIBC 384 Iron Saturation 5 L Unsaturated IBC 363 H Ferritin 24.5 Total Bilirubin AST ALT Alkaline Phosphatase Creatine Kinase Troponin I Total Protein Albumin Vitamin B12 525 Serum Folate TSH Urine Color Urine Appearance Urine pH Ur Specific [place] Urine Protein Urine Glucose (UA) Urine Ketones Urine Blood Urine Nitrite Urine Bilirubin Urine Urobilinogen Ur Leukocyte Esterase Blood Type Antibody Screen Sinus rhythm, nonspecific IVCD vs. LBBB, lateral and inferior infarct Echo: Report Reviewed (Normal LV systolic function, mild MR, mild TR, mild AR) Imaging - Results Chest X-ray: Report Reviewed (Borderline cardiomegaly) X-ray: Report Reviewed (Right ankle fracture) EKG: Report Reviewed Problem List - Problems (1) HTN (hypertension) Code(s): I10 - ESSENTIAL (PRIMARY) HYPERTENSION (2) Hypothyroidism Code(s): E03.9 - HYPOTHYROIDISM, UNSPECIFIED (3) LBBB (left bundle branch block) Code(s): I44.7 - LEFT BUNDLE-BRANCH BLOCK, UNSPECIFIED (4) Malleolar fracture Code(s): S82.899A - OTH FRACTURE OF UNSP LOWER LEG, INIT FOR CLOS FX Qualifiers: Encounter type: initial encounter Fracture type: closed Laterality: right Qualified Code(s): S82.891A - Other fracture of right lower leg, initial encounter for closed fracture Assessment/Plan 1. Mechanical fall resulting in right ankle fracture 2. HTN 3. Hypothyroidism PLAN: 1. No absolute contraindication for surgery in view of absence of ischemic symptoms, decompensated congestive heart failure or malignant arrhythmia. 2. Continue Valsartan 320 mg QD and Amlodipine 5 mg QD (uptitrate) 3. Add HCTZ 25 mg QD 4. Echocardiography report was reviewed Further plans are to follow. Patient currently reluctant with surgery Ethan Hoff MD
[2019-04-29] MEDS ORDERED: amLODIPine BESYLATE 10 MG TABLET (FP) PO SCH (12:04)
[2019-04-29] MEDS ORDERED: HYDROCHLOROTHIAZIDE 25 MG TABLET (FP) PO SCH (12:15)
--- NOTE | 2019-04-29 14:57 | PN ---
Physical Exam: SUBJECTIVE: Patient seen and examined 83 y/o F, w/ PMH of HTN, intentional tremors, hypothyroidism, polyneuropathy, presents s/p Fall is admitted for a Bimalleolar fx of the right ankle. Today pt is stable, asymptomatic and afebrile. Pt denies pain, although she has difficulty moving her right LE. PT reports no overnight events. Pt is anxious and refuses to undergo any surgeries. Denies f/c/n/v/d, sob, chest pain, numbness or tingling. OBJECTIVE: Vital Signs Last Vital Signs Temp Pulse Resp BP Pulse Ox 97.8 F 77 20 130/95 98 04/29/19 13:13 04/29/19 13:13 04/29/19 13:13 04/29/19 13:13 04/29/19 09:00 GENERAL: The patient is AOx2, in no acute distress. EYES: PERRL, extraocular movements intact, sclera anicteric, ENT: Oropharynx clear without exudates, moist mucous membranes. NECK: supple, no LAD LUNGS: Breath sounds equal, clear to auscultation bilaterally, no wheezes, no crackles, HEART: Regular rate and rhythm, S1, S2 no rub or gallop. Tricuspid murmur present on the aortic and tricuspid areas ABDOMEN: Soft, nontender, nondistended, normoactive bowel sounds, no guarding EXTREMITIES: 2+ pulses, warm NEUROLOGICAL: Cranial nerves II through XII grossly intact. Intention tremors present PSYCH: Normal mood, normal affect. Laboratory Results - last 24 hr CBC,CMP WBC 6.3 K/mm3 (4.0-10.0) 04/29/19 06:40 RBC 4.09 M/mm3 (3.60-5.2) 04/29/19 06:40 Hgb 9.5 GM/dL (10.7-15.3) L 04/29/19 06:40 Hct 29.3 % (32.4-45.2) L 04/29/19 06:40 MCV 71.8 fl (80-96) L 04/29/19 06:40 MCH 23.2 pg (25.7-33.7) L 04/29/19 06:40 MCHC 32.3 g/dl (32.0-36.0) 04/29/19 06:40 RDW 16.1 % (11.6-15.6) H 04/29/19 06:40 Plt Count 377 K/MM3 (134-434) 04/29/19 06:40 MPV 9.1 fl (7.5-11.1) D 04/29/19 06:40 Absolute Neuts (auto) 4.7 K/mm3 (1.5-8.0) 04/29/19 06:40 Neutrophils % 74.9 % (42.8-82.8) 04/29/19 06:40 Lymphocytes % 15.2 % (8-40) 04/29/19 06:40 Monocytes % 6.4 % (3.8-10.2) 04/29/19 06:40 Eosinophils % 2.6 % (0-4.5) 04/29/19 06:40 Basophils % 0.9 % (0-2.0) 04/29/19 06:40 Nucleated RBC % 0 % (0-0) 04/29/19 06:40 Retic Count 2.20 % (0.5-1.5) H 04/29/19 06:40 Sodium 138 mmol/L (136-145) 04/29/19 06:40 Potassium 4.4 mmol/L (3.5-5.1) 04/29/19 06:40 Chloride 107 mmol/L (98-107) 04/29/19 06:40 Carbon Dioxide 25 mmol/L (21-32) 04/29/19 06:40 Anion Gap 6 MMOL/L (8-16) L 04/29/19 06:40 BUN 10.0 mg/dL (7-18) 04/29/19 06:40 Creatinine 0.9 mg/dL (0.55-1.3) 04/29/19 06:40 Est GFR (CKD-EPI)AfAm 67.57 04/29/19 06:40 Est GFR (CKD-EPI)NonAf 58.30 04/29/19 06:40 POC Glucometer 92 UNITS (80-120) 04/28/19 22:27 Random Glucose 131 mg/dL (74-106) H 04/29/19 06:40 Calcium 9.6 mg/dL (8.5-10.1) 04/29/19 06:40 Phosphorus 2.6 mg/dL (2.5-4.9) 04/29/19 06:40 Magnesium 2.1 mg/dL (1.8-2.4) 04/29/19 06:40 Iron 21 ug/dL (50-175) L 04/29/19 06:40 TIBC 384 ug/dL (250-450) 04/29/19 06:40 Iron Saturation 5 % (17.5-39) L 04/29/19 06:40 Unsaturated IBC 363 ug/dL (200-275) H 04/29/19 06:40 Ferritin 24.5 ng/ml (8-388) 04/29/19 06:40 Total Bilirubin 0.5 mg/dL (0.2-1) 04/29/19 06:40 AST 20 U/L (15-37) 04/29/19 06:40 ALT 22 U/L (13-61) 04/29/19 06:40 Alkaline Phosphatase 100 U/L (45-117) 04/29/19 06:40 Creatine Kinase 141 U/L (26-192) 04/28/19 18:50 Troponin I < 0.02 ng/ml (0.00-0.05) 04/28/19 18:50 Total Protein 7.0 g/dl (6.4-8.2) 04/29/19 06:40 Albumin 3.4 g/dl (3.4-5.0) 04/29/19 06:40 Vitamin B12 525 pg/ml (193-986) 04/29/19 06:40 Serum Folate 18 ng/mL (3.1-17.5) H 04/29/19 06:40 TSH 0.69 uIU/ml (0.358-3.74) 04/29/19 06:40 Active Medications Current Medications Acetaminophen (Tylenol -) 650 mg PO Q4H PRN PRN Reason: PAIN LEVEL 4 - 6 Amlodipine Besylate (Norvasc -) 10 mg PO DAILY [facility] Gabapentin (Neurontin -) 600 mg PO TID [facility] Last Admin: 04/29/19 14:29 Dose: Not Given Heparin Sodium (Porcine) (Heparin -) 5,000 unit SQ TID [facility] Last Admin: 04/29/19 14:29 Dose: Not Given Hydrochlorothiazide (Hctz -) 25 mg PO DAILY [facility] Last Admin: 04/29/19 13:38 Dose: 25 mg Potassium Chloride/Sodium Chloride (Ns+20 Meq Kcl -) 20 meq in 1,000 mls @ 83 mls/hr IV ASDIR [facility] Last Admin: 04/29/19 01:40 Dose: 83 mls/hr Levothyroxine Sodium (Synthroid -) 150 mcg PO DAILY@0700 [facility] Last Admin: 04/29/19 06:10 Dose: Not Given Oxycodone HCl (Roxicodone -) 5 mg PO Q6H PRN PRN Reason: PAIN LEVEL 6-10 Valsartan (Diovan -) 320 mg PO DAILY [facility] Last Admin: 04/29/19 09:17 Dose: 320 mg Home Medications Medication Instructions Recorded Gabapentin 600 mg PO TID 08/02/14 Levothyroxine [Synthroid -] 150 mcg PO DAILY 08/02/14 Valsartan/Hydrochlorothiazide 1 each PO DAILY 04/28/19 [Valsartan-Hctz 320-25 mg Tab] Escitalopram Oxalate [Lexapro -] 1 tablet PO DAILY 04/29/19 ASSESSMENT/PLAN: 83 y/o F, w/ PMH of HTN, intentional tremors, hypothyroidism, polyneuropathy, presents s/p Fall is admitted for a Bimalleolar fx of the right ankle. #Bimalleolar fracture right ankle - X-Ray of R ankle- bimalleolar fx w/ mild displacement and widening of the space between the medial malleolus and talus - Dr. Live consulted - NPO- possible OR today or tomorrow- Pt and her son both agree to surgery now - Type and screen- O positive - Posterior splint placed - Tylenol 650 PO q4 prn, morphine IV prn - Echo- EF normal, impaired LV relaxation - Cardio cleared pt for surgery - Pt has hx of LBBB - Fall precautions - No Weight bearing #HTN - BP 130/95 now - continue HCTZ - continue valsartan 320mg daily - continue Amlodipine 5mg daily # Iron def anemia unremarkable endoscopy and colonoscopy 1 year ago. - f/u iron studies, ferritin, TIBC- consistent with iron def anemia - follow CBC closely - f/u FOBT - Iron supplements # Hypothyroidism - TSH- normal (.69) - Continue Synthroid # FEN - IV NS - monitor lytes - NPO- possible surgery now or joy #DVT ppx Heparin SQ TID #Dispo- surgery soon, monitor BP, pain control, f/u w/ surgery Visit type - Emergency Visit Emergency Visit: Yes ED Registration Date: 04/28/19 Care time: The patient presented to the Emergency Department on the above date and was hospitalized for further evaluation of their emergent condition. - New Patient This patient is new to me today: Yes Date on this admission: 04/30/19 - Critical Care Critical Care patient: No - Discharge Referral Referred to [facility] Med P.C.: No ATTENDING PHYSICIAN STATEMENT I saw and evaluated the patient. I reviewed the resident's note and discussed the case with the resident. I agree with the resident's findings and plan as documented. SUBJECTIVE: OBJECTIVE: ASSESSMENT AND PLAN:
--- NOTE | 2019-04-29 16:44 | OP ---
Operative Note - Note: Operative Date: 04/29/19 ([facility]) Pre-Operative Diagnosis: right ankle ramón fx Operation: right ankle closed reduction and cast application Post-Operative Diagnosis: Same as Pre-op Surgeon: Tayo Live Transportation Maintenance Specialist: Raymond Knutson Anesthesia: MAC
--- NOTE | 2019-04-29 17:35 | PN ---
Teaching Attending Note Name of Resident: Miguel Ángel Barcenas ATTENDING PHYSICIAN STATEMENT I saw and evaluated the patient. I reviewed the resident's note and discussed the case with the resident. I agree with the resident's findings and plan as documented. SUBJECTIVE: seen at 11 am No fever or chills. pain in affected ankle . OBJECTIVE: NAD , MMM, awake , alert, oriented to place, and self. Thinks it is 1998. know president's name and her address Cv : RRR, 2/6 DM at RUSB and LLSB. loud S2, Lungs: CTAB Ext : R ankle in a brace. can wiggle her toes, has normal sensation , DP 2+ . non pitting edema on R leg up to knee. LLE with no edema or erythema . ASSESSMENT AND PLAN: 83 y/o lady with h/o HTN, neuropathy and hypothyroidism, who presented with R ankle pain after a fall and was found to have R ankle Fx 1- R ankle Fx . - Surgical repair today - pain control - dc IVF - Weight baring per ortho 2- HTN urgency: no sx . - gave her home meds this am and BP imrpoved - appreciate card inpur - cont norvasc ( increased to 10 mg daily ) - cont home ARB - HCTZ added 3- LBBB: - echo reviewed. and EKG reviewed - monitor 4- DVT PX : Heparin sq
--- NOTE | 2019-04-29 19:19 | CONS ---
DATE OF CONSULTATION: 04/29/2019 ORTHOPEDIC CONSULTATION HISTORY OF PRESENT ILLNESS: Patient is an 83-year-old female who lives alone status post fall today injuring her right ankle. She was admitted to the hospital through the emergency room. On physical examination, her right ankle is in a posterior splint. She has brisk capillary refill of her toes and is vascularly intact. Calf is soft and nontender. She has good range of motion right hip and knee and toes. X-rays which I reviewed revealed that she has a bimalleolar right ankle fracture with some displacement laterally with some wiping of the medial clear space. IMPRESSION: Right bimalleolar ankle fracture in an 83-year-old female. Risks, benefits, and alternatives discussed with patient, son and daughter on the telephone who lives in [place]. The patient and family have decided they do not want open reduction, internal fixation at this time. They would like to take the patient to [place] to meet with her daughter and in that location she would be in a better situation to take care of the patient. The daughter would be in a better situation to take care of the patient. We have elected then to do a closed reduction, application of a cast to facilitate the patient to be discharged and transported to [place] where either they can decide there to continue closed treatment or perform an open reduction, internal fixation. The family is aware that nonoperative treatment will not give us necessarily an anatomic reduction as operative intervention and would require a significant amount of time of immobilization. Again, after thorough discussion of the pros and cons of operative versus nonoperative treatment, they have elected to undergo closed treatment in the operating room, application of a cast so they can transport the patient to [place] for further treatment there. ELÍAS STERLING M.D. [id number]
[2019-04-30] MEDS: SODIUM CHLORIDE 0.9%/KCL 20 MEQ/1,000 ML INFUS.BAG IV SCH (06:21)
[2019-04-30] MEDS: LEVOTHYROXINE NA 150 MCG TABLET PO SCH (06:22)
[2019-04-30] MEDS: HEPARIN NA (PORCINE) 5,000 UNITS/ML 1ML VIAL SQ SCH ×3 (06:22→21:33)
[2019-04-30] MEDS: GABAPENTIN 300 MG CAPSULE (FP) PO SCH ×3 (06:22→21:33)
[2019-04-30 08:22] LABS: BASO % 1.3 % (0-2.0); EOS % 5.4 % (0-4.5); HEMATOCRIT 29.2 % (32.4-45.2); HEMOGLOBIN 9.4 GM/dL (10.7-15.3); LYMPH % 16.3 % (8-40); MCH 23.3 pg (25.7-33.7); MCHC 32.1 g/dl (32.0-36.0); MEAN CELL VOLUME 72.7 fl (80-96); MEAN PLT VOLUME 8.5 fl (7.5-11.1); MONO % 7.4 % (3.8-10.2); NEUT % 69.6 % (42.8-82.8); PLATELET COUNT 405 K/MM3 (134-434); RBC 4.02 M/mm3 (3.60-5.2); RDW 16.8 % (11.6-15.6)
--- NOTE | 2019-04-30 08:26 | OP ---
DATE OF OPERATION: 04/29/2019 PREOPERATIVE DIAGNOSIS: Displaced right bimalleolar ankle fracture. POSTOPERATIVE DIAGNOSIS: Displaced right bimalleolar ankle fracture. PROCEDURE PERFORMED: Closed reduction and application of short leg case to the right ankle. SURGICAL ATTENDING: Tayo Live MD ELEVATOR TROUBLESHOOTER: Raymond Knutson M.D. ANESTHESIA: IV sedation. DESCRIPTION OF PROCEDURE: The patient was taken to the operating room on April 29, 2019. Gentle IV sedation was administered by the anesthesiologist. Closed reduction was performed and an adequate reduction was obtained. A well-padded short leg cast was applied, with molding and internal rotation. Fluoroscopy post application of the cast revealed adequate reduction, although there was some displacement of the medial . The patient was awakened from anesthesia and transferred to the recovery room in stable condition. No complications. Estimated blood loss was negligible. TAYO LIVE M.D. [id number]
--- NOTE | 2019-04-30 08:28 | PN ---
Physical Exam: SUBJECTIVE: Patient seen and examined 83 y/o F, w/ PMH of HTN, intentional tremors, hypothyroidism, polyneuropathy, presents s/p Fall is admitted for a Bimalleolar fx of the right ankle. Today pt is asymptomatic, afebrile and appears to be in usual state of health. Pt denies pain, although she hasn't urinated yet. Pt reports no overnight events. Denies f /c/n/v/d, sob, chest pain, numbness or tingling. OBJECTIVE: Last Vital Signs Temp Pulse Resp BP Pulse Ox 98.4 F 75 20 145/66 98 04/30/19 09:22 04/30/19 09:22 04/30/19 09:22 04/30/19 09:22 04/30/19 09:00 GENERAL: The patient is AOx2, in no acute distress. EYES: PERRL, extraocular movements intact, sclera anicteric, ENT: Oropharynx clear without exudates, moist mucous membranes. NECK: supple, no LAD LUNGS: Breath sounds equal, clear to auscultation bilaterally, no wheezes, no crackles, HEART: Regular rate and rhythm, S1, S2 no rub or gallop. Tricuspid murmur present on the aortic and tricuspid areas ABDOMEN: Soft, nontender, nondistended, normoactive bowel sounds, no guarding EXTREMITIES: 2+ pulses, warm. Right LE in cast, s/p surgery- ORIF. Right toes are moving and sensation intact. Left LE normal. NEUROLOGICAL: Cranial nerves II through XII grossly intact. Intention tremors present PSYCH: Normal mood, normal affect. Laboratory Results - last 24 hr WBC 7.0 K/mm3 (4.0-10.0) 04/30/19 06:45 RBC 4.02 M/mm3 (3.60-5.2) 04/30/19 06:45 Hgb 9.4 GM/dL (10.7-15.3) L 04/30/19 06:45 Hct 29.2 % (32.4-45.2) L 04/30/19 06:45 MCV 72.7 fl (80-96) L 04/30/19 06:45 MCH 23.3 pg (25.7-33.7) L 04/30/19 06:45 MCHC 32.1 g/dl (32.0-36.0) 04/30/19 06:45 RDW 16.8 % (11.6-15.6) H 04/30/19 06:45 Plt Count 405 K/MM3 (134-434) 04/30/19 06:45 MPV 8.5 fl (7.5-11.1) 04/30/19 06:45 Absolute Neuts (auto) 4.9 K/mm3 (1.5-8.0) 04/30/19 06:45 Neutrophils % 69.6 % (42.8-82.8) 04/30/19 06:45 Lymphocytes % 16.3 % (8-40) 04/30/19 06:45 Monocytes % 7.4 % (3.8-10.2) 04/30/19 06:45 Eosinophils % 5.4 % (0-4.5) H D 04/30/19 06:45 Basophils % 1.3 % (0-2.0) 04/30/19 06:45 Nucleated RBC % 0 % (0-0) 04/30/19 06:45 Retic Count 2.20 % (0.5-1.5) H 04/29/19 06:40 Sodium 137 mmol/L (136-145) 04/30/19 06:45 Potassium 4.5 mmol/L (3.5-5.1) 04/30/19 06:45 Chloride 107 mmol/L (98-107) 04/30/19 06:45 Carbon Dioxide 25 mmol/L (21-32) 04/30/19 06:45 Anion Gap 5 MMOL/L (8-16) L 04/30/19 06:45 BUN 8.4 mg/dL (7-18) 04/30/19 06:45 Creatinine 0.8 mg/dL (0.55-1.3) 04/30/19 06:45 Est GFR (CKD-EPI)AfAm 77.92 04/30/19 06:45 Est GFR (CKD-EPI)NonAf 67.23 04/30/19 06:45 POC Glucometer 92 UNITS (80-120) 04/28/19 22:27 Random Glucose 120 mg/dL (74-106) H 04/30/19 06:45 Calcium 9.9 mg/dL (8.5-10.1) 04/30/19 06:45 Phosphorus 2.6 mg/dL (2.5-4.9) 04/29/19 06:40 Magnesium 2.1 mg/dL (1.8-2.4) 04/29/19 06:40 Iron 21 ug/dL (50-175) L 04/29/19 06:40 TIBC 384 ug/dL (250-450) 04/29/19 06:40 Iron Saturation 5 % (17.5-39) L 04/29/19 06:40 Unsaturated IBC 363 ug/dL (200-275) H 04/29/19 06:40 Transferrin 297 mg/dL (200-370) 04/29/19 06:40 Ferritin 24.5 ng/ml (8-388) 04/29/19 06:40 Total Bilirubin 0.5 mg/dL (0.2-1) 04/30/19 06:45 AST 24 U/L (15-37) 04/30/19 06:45 ALT 22 U/L (13-61) 04/30/19 06:45 Alkaline Phosphatase 91 U/L (45-117) 04/30/19 06:45 Creatine Kinase 141 U/L (26-192) 04/28/19 18:50 Troponin I < 0.02 ng/ml (0.00-0.05) 04/28/19 18:50 Total Protein 6.4 g/dl (6.4-8.2) 04/30/19 06:45 Albumin 3.2 g/dl (3.4-5.0) L 04/30/19 06:45 Vitamin B12 525 pg/ml (193-986) 04/29/19 06:40 Serum Folate 18 ng/mL (3.1-17.5) H 04/29/19 06:40 TSH 0.69 uIU/ml (0.358-3.74) 04/29/19 06:40 Active Medications Current Medications Acetaminophen (Tylenol -) 650 mg PO Q4H PRN PRN Reason: PAIN LEVEL 4 - 6 Amlodipine Besylate (Norvasc -) 10 mg PO DAILY [facility] Last Admin: 04/30/19 09:21 Dose: 10 mg Gabapentin (Neurontin -) 600 mg PO TID [facility] Last Admin: 04/30/19 06:22 Dose: 600 mg Heparin Sodium (Porcine) (Heparin -) 5,000 unit SQ TID [facility] Last Admin: 04/30/19 06:22 Dose: 5,000 unit Hydrochlorothiazide (Hctz -) 25 mg PO DAILY [facility] Last Admin: 04/30/19 09:21 Dose: 25 mg Potassium Chloride/Sodium Chloride (Ns+20 Meq Kcl -) 20 meq in 1,000 mls @ 83 mls/hr IV ASDIR [facility] Last Admin: 04/30/19 06:21 Dose: 83 mls/hr Levothyroxine Sodium (Synthroid -) 150 mcg PO DAILY@0700 [facility] Last Admin: 04/30/19 06:22 Dose: 150 mcg Oxycodone HCl (Roxicodone -) 5 mg PO Q6H PRN PRN Reason: PAIN LEVEL 6-10 Last Admin: 04/29/19 21:24 Dose: 5 mg Valsartan (Diovan -) 320 mg PO DAILY [facility] Last Admin: 04/30/19 09:21 Dose: 320 mg Home Medications Medication Instructions Recorded Gabapentin 600 mg PO TID 08/02/14 Levothyroxine [Synthroid -] 150 mcg PO DAILY 08/02/14 Valsartan/Hydrochlorothiazide 1 each PO DAILY 04/28/19 [Valsartan-Hctz 320-25 mg Tab] Escitalopram Oxalate [Lexapro -] 1 tablet PO DAILY 04/29/19 Microbiology 04/28/19 23:46 Urine - Urine [facility] Urine Culture - Final NO GROWTH OBTAINED ASSESSMENT/PLAN: 83 y/o F, w/ PMH of HTN, intentional tremors, hypothyroidism, polyneuropathy, presents s/p Fall is admitted for a Bimalleolar fx of the right ankle. #Bimalleolar fracture right ankle - X-Ray of R ankle- bimalleolar fx w/ mild displacement and widening of the space between the medial malleolus and talus - S/p Surgery-ORIF- pt doing well. - Rt LE in cast and immobilized - Tylenol 650 PO q4 prn, morphine IV prn - Echo- EF normal, impaired LV relaxation - Cardio cleared pt for surgery - Pt has hx of LBBB - Fall precautions - No Weight bearing - UCx- no growth #HTN - BP 145/66 today Continue, as per cardio, Valsartan 320 mg QD, Amlodipine 10 mg QD, HCTZ 25 mg QD # Iron def anemia unremarkable endoscopy and colonoscopy 1 year ago. - f/u iron studies, ferritin, TIBC- consistent with iron def anemia - follow CBC closely - Hb 9.4 today - Iron supplements if needed, consider out pt # Hypothyroidism - TSH- normal (.69) - Continue Synthroid # FEN - IV-dc - monitor lytes - Sodium controlled diet #DVT ppx Heparin SQ TID #Dispo- s/p surgery, monitor BP, pain control Visit type - Emergency Visit Emergency Visit: Yes ED Registration Date: 04/28/19 Care time: The patient presented to the Emergency Department on the above date and was hospitalized for further evaluation of their emergent condition. - New Patient This patient is new to me today: Yes Date on this admission: 04/30/19 - Critical Care Critical Care patient: No - Discharge Referral Referred to [facility] Med P.C.: No ATTENDING PHYSICIAN STATEMENT I saw and evaluated the patient. I reviewed the resident's note and discussed the case with the resident. I agree with the resident's findings and plan as documented. SUBJECTIVE: OBJECTIVE: ASSESSMENT AND PLAN:
[2019-04-30 08:49] LABS: ALBUMIN 3.2 g/dl (3.4-5.0); BILIRUBIN,TOTAL 0.5 mg/dL (0.2-1); BLOOD UREA NITROGEN 8.4 mg/dL (7-18); CALCIUM 9.9 mg/dL (8.5-10.1); CREATININE 0.8 mg/dL (0.55-1.3); POTASSIUM 4.5 mmol/L (3.5-5.1); TOT PROT 6.4 g/dl (6.4-8.2)
[2019-04-30] MEDS: VALSARTAN 160 MG TABLET (UD) PO SCH (09:21)
[2019-04-30] MEDS: amLODIPine BESYLATE 10 MG TABLET (FP) PO SCH (09:21)
--- NOTE | 2019-04-30 09:31 | PN ---
Teaching Attending Note Name of Resident: Miguel Ángel Barcenas ATTENDING PHYSICIAN STATEMENT I saw and evaluated the patient. I reviewed the resident's note and discussed the case with the resident. I agree with the resident's findings and plan as documented. SUBJECTIVE: No fever or chills. no further pain today . . OBJECTIVE: Vital Signs Temperature 98.4 F 04/30/19 09:22 Pulse Rate 75 04/30/19 09:22 Respiratory Rate 20 04/30/19 09:22 Blood Pressure 145/66 04/30/19 09:22 O2 Sat by Pulse Oximetry (%) 98 04/29/19 18:42 GENERAL: The patient is awake, alert, and oriented, in no acute distress. HEAD: Normal with no signs of trauma. EYES: PERRL, extraocular movements intact, sclera anicteric, conjunctiva clear. . ENT: Ears normal, oropharynx clear without exudates, moist mucous membranes. NECK: Trachea midline, full range of motion, supple. LUNGS: Breath sounds equal, clear to auscultation bilaterally, no wheezes, no crackles, no accessory muscle use. HEART: Regular rate and rhythm, S1, S2 positve, 2/6 DM at RUSB and LLSB. loud S2 , ABDOMEN: Soft, nontender, nondistended, normoactive bowel sounds, no guarding, no rebound, no hepatosplenomegaly, no masses. EXTREMITIES: 2+ pulses, warm, R ankle in a brace. can wiggle her toes, has normal sensation , DP 2+ . non pitting edema on R leg up to knee. LLE with no edema or erythema . NEUROLOGICAL: Cranial nerves II through XII grossly intact. Normal speech, gait not observed. PSYCH: Normal mood, normal affect. SKIN: Warm, dry, normal turgor, no rashes or lesions noted CBCD WBC 7.0 K/mm3 (4.0-10.0) 04/30/19 06:45 RBC 4.02 M/mm3 (3.60-5.2) 04/30/19 06:45 Hgb 9.4 GM/dL (10.7-15.3) L 04/30/19 06:45 Hct 29.2 % (32.4-45.2) L 04/30/19 06:45 MCV 72.7 fl (80-96) L 04/30/19 06:45 MCHC 32.1 g/dl (32.0-36.0) 04/30/19 06:45 RDW 16.8 % (11.6-15.6) H 04/30/19 06:45 Plt Count 405 K/MM3 (134-434) 04/30/19 06:45 MPV 8.5 fl (7.5-11.1) 04/30/19 06:45 CMP Sodium 137 mmol/L (136-145) 04/30/19 06:45 Potassium 4.5 mmol/L (3.5-5.1) 04/30/19 06:45 Chloride 107 mmol/L (98-107) 04/30/19 06:45 Carbon Dioxide 25 mmol/L (21-32) 04/30/19 06:45 Anion Gap 5 MMOL/L (8-16) L 04/30/19 06:45 BUN 8.4 mg/dL (7-18) 04/30/19 06:45 Creatinine 0.8 mg/dL (0.55-1.3) 04/30/19 06:45 Random Glucose 120 mg/dL (74-106) H 04/30/19 06:45 Calcium 9.9 mg/dL (8.5-10.1) 04/30/19 06:45 Total Bilirubin 0.5 mg/dL (0.2-1) 04/30/19 06:45 AST 24 U/L (15-37) 04/30/19 06:45 ALT 22 U/L (13-61) 04/30/19 06:45 Alkaline Phosphatase 91 U/L (45-117) 04/30/19 06:45 Total Protein 6.4 g/dl (6.4-8.2) 04/30/19 06:45 Albumin 3.2 g/dl (3.4-5.0) L 04/30/19 06:45 CARDIAC ENZYMES Creatine Kinase 141 U/L (26-192) 04/28/19 18:50 Troponin I < 0.02 ng/ml (0.00-0.05) 04/28/19 18:50 Current Medications Generic Name Dose Route Start Last Admin Trade Name Freq PRN Reason Stop Dose Admin Acetaminophen 650 mg 04/29/19 17:27 Tylenol - PO Q4H PRN PAIN LEVEL 4 - 6 Amlodipine Besylate 10 mg 04/30/19 10:00 04/30/19 09:21 Norvasc - PO 10 mg DAILY [facility] Administration Gabapentin 600 mg 04/29/19 22:00 04/30/19 06:22 Neurontin - PO 600 mg TID [facility]ARA Administration Heparin Sodium (Porcine) 5,000 unit 04/29/19 22:00 04/30/19 06:22 Heparin - SQ 5,000 unit TID [facility]ARA Administration Hydrochlorothiazide 25 mg 04/30/19 10:00 04/30/19 09:21 Hctz - PO 25 mg DAILY [facility] Administration Potassium Chloride/Sodium Chloride 20 meq in 1,000 mls @ 83 mls/hr 04/29/19 17 :27 04/30/19 06:21 Ns+20 Meq Kcl - IV 83 mls/hr ASDIR [facility] Administration Levothyroxine Sodium 150 mcg 04/30/19 07:00 04/30/19 06:22 Synthroid - PO 150 mcg DAILY@0700 [facility] Administration Oxycodone HCl 5 mg 04/29/19 17:27 04/29/19 21:24 Roxicodone - PO 5 mg Q6H PRN Administration PAIN LEVEL 6-10 Valsartan 320 mg 04/30/19 10:00 04/30/19 09:21 Diovan - PO 320 mg DAILY [facility] Administration Home Medications Medication Instructions Recorded Gabapentin 600 mg PO TID 08/02/14 Levothyroxine [Synthroid -] 150 mcg PO DAILY 08/02/14 Valsartan/Hydrochlorothiazide 1 each PO DAILY 04/28/19 [Valsartan-Hctz 320-25 mg Tab] Escitalopram Oxalate [Lexapro -] 1 tablet PO DAILY 04/29/19 Microbiology 04/28/19 23:46 Urine - Urine [facility] Urine Culture - Final NO GROWTH OBTAINED ASSESSMENT AND PLAN: Patient is an 83 y/o female with PMhx of HTN, neuropathy and hypothyroidism, who presented with R ankle pain after a fall and was found to have R ankle Fx # s/p fall ; R ankle Fx , s/p sx , pain control , further care per ortho, Weight baring per ortho . will add VIt d3 2u DAILY. # HTN controlled: continue with valsatan, norvasc, will dc Hctz since can cause low sodium and and exacerbate her symptoms. # LBBB: echo reviewed. and EKG reviewed DVT PX : Heparin sq
[2019-04-30] MEDS ORDERED: HYDROCHLOROTHIAZIDE 25 MG TABLET (FP) PO SCH (10:00)
--- NOTE | 2019-04-30 10:00 | PN ---
Progress Note, Physician History of Present Illness: POD #1 right ankle closed reduction and cast application, no complaints. BP with improved control. - Current Medication List Current Medications: Active Medications Acetaminophen (Tylenol -) 650 mg PO Q4H PRN PRN Reason: PAIN LEVEL 4 - 6 Amlodipine Besylate (Norvasc -) 10 mg PO DAILY [facility] Last Admin: 04/30/19 09:21 Dose: 10 mg Gabapentin (Neurontin -) 600 mg PO TID [facility] Last Admin: 04/30/19 06:22 Dose: 600 mg Heparin Sodium (Porcine) (Heparin -) 5,000 unit SQ TID [facility] Last Admin: 04/30/19 06:22 Dose: 5,000 unit Hydrochlorothiazide (Hctz -) 25 mg PO DAILY [facility] Last Admin: 04/30/19 09:21 Dose: 25 mg Potassium Chloride/Sodium Chloride (Ns+20 Meq Kcl -) 20 meq in 1,000 mls @ 83 mls/hr IV ASDIR [facility] Last Admin: 04/30/19 06:21 Dose: 83 mls/hr Levothyroxine Sodium (Synthroid -) 150 mcg PO DAILY@0700 [facility] Last Admin: 04/30/19 06:22 Dose: 150 mcg Oxycodone HCl (Roxicodone -) 5 mg PO Q6H PRN PRN Reason: PAIN LEVEL 6-10 Last Admin: 04/29/19 21:24 Dose: 5 mg Valsartan (Diovan -) 320 mg PO DAILY [facility] Last Admin: 04/30/19 09:21 Dose: 320 mg - Objective Vital Signs: Vital Signs Temperature 98.4 F 04/30/19 09:22 Pulse Rate 75 04/30/19 09:22 Respiratory Rate 20 04/30/19 09:22 Blood Pressure 145/66 04/30/19 09:22 O2 Sat by Pulse Oximetry (%) 98 04/30/19 09:00 Constitutional: Yes: No Distress, Calm Neck: Yes: Supple Cardiovascular: Yes: Regular Rate and Rhythm Respiratory: Yes: Regular, CTA Bilaterally Gastrointestinal: Yes: Normal Bowel Sounds, Soft Edema: No Labs: CBC, BMP 04/30/19 06:45 04/30/19 06:45 INR, PTT INR 1.11 (0.83-1.09) H 04/29/19 06:40 Problem List - Problems (1) Hypothyroidism Code(s): E03.9 - HYPOTHYROIDISM, UNSPECIFIED Qualifiers: Hypothyroidism type: unspecified Qualified Code(s): E03.9 - Hypothyroidism , unspecified (2) Malleolar fracture Code(s): S82.899A - OTH FRACTURE OF UNSP LOWER LEG, INIT FOR CLOS FX Qualifiers: Encounter type: initial encounter Fracture type: closed Laterality: right Qualified Code(s): S82.891A - Other fracture of right lower leg, initial encounter for closed fracture (3) Hypertensive heart disease Code(s): I11.9 - HYPERTENSIVE HEART DISEASE WITHOUT HEART FAILURE Qualifiers: Heart failure presence: without heart failure Qualified Code(s): I11.9 - Hypertensive heart disease without heart failure Assessment/Plan 04/29/2019 Echo: Normal LV and RV size and fxn LVEF 70%, mild MR, TR, AR, abnl LV compliance 1. POD#1 right ankle closed reduction and cast application 2. HTN heart disease, BP control improved 3. Hypothyroidism PLAN: 1. Continue Valsartan 320 mg QD, Amlodipine 10 mg QD, HCTZ 25 mg QD 2. Analgesia as needed, mobilize as tolerated, DVT prophylaxis
[2019-04-30] MEDS ORDERED: PT OWN MED DRAWER 7, Y5N ONE (16:50)
[2019-04-30] MEDS: CHOLECALCIFEROL (VIT D3) 1,000 UNIT (25 MCG) TABLET PO SCH (21:33)
[2019-05-01] MEDS: HEPARIN NA (PORCINE) 5,000 UNITS/ML 1ML VIAL SQ SCH ×3 (07:09→21:04)
[2019-05-01] MEDS: GABAPENTIN 300 MG CAPSULE (FP) PO SCH ×3 (07:09→21:04)
[2019-05-01] MEDS: LEVOTHYROXINE NA 150 MCG TABLET PO SCH (07:09)
[2019-05-01 08:54] LABS: BASO % 0.6 % (0-2.0); EOS % 7.2 % (0-4.5); HEMATOCRIT 30.7 % (32.4-45.2); HEMOGLOBIN 9.6 GM/dL (10.7-15.3); LYMPH % 20.1 % (8-40); MCH 23.1 pg (25.7-33.7); MCHC 31.3 g/dl (32.0-36.0); MEAN CELL VOLUME 73.7 fl (80-96); MEAN PLT VOLUME 8.1 fl (7.5-11.1); MONO % 6.2 % (3.8-10.2); NEUT % 65.9 % (42.8-82.8); PLATELET COUNT 424 K/MM3 (134-434); RBC 4.16 M/mm3 (3.60-5.2); RDW 17.1 % (11.6-15.6); WHITE BLOOD COUNT 7.3 K/mm3 (4.0-10.0)
--- NOTE | 2019-05-01 09:14 | PN ---
Progress Note, Physician History of Present Illness: POD #2 right ankle closed reduction and cast application, no complaints. BP with improved control. - Current Medication List Current Medications: Active Medications Acetaminophen (Tylenol -) 650 mg PO Q4H PRN PRN Reason: PAIN LEVEL 4 - 6 Amlodipine Besylate (Norvasc -) 10 mg PO DAILY [facility] Last Admin: 04/30/19 09:21 Dose: 10 mg Cholecalciferol (Vitamin D3 -) 2,000 unit PO DAILY [facility] Last Admin: 04/30/19 21:33 Dose: 2,000 unit Gabapentin (Neurontin -) 600 mg PO TID [facility] Last Admin: 05/01/19 07:09 Dose: 600 mg Heparin Sodium (Porcine) (Heparin -) 5,000 unit SQ TID [facility] Last Admin: 05/01/19 07:09 Dose: 5,000 unit Levothyroxine Sodium (Synthroid -) 150 mcg PO DAILY@0700 [facility] Last Admin: 05/01/19 07:09 Dose: 150 mcg Oxycodone HCl (Roxicodone -) 5 mg PO Q6H PRN PRN Reason: PAIN LEVEL 6-10 Last Admin: 04/29/19 21:24 Dose: 5 mg Valsartan (Diovan -) 320 mg PO DAILY [facility] Last Admin: 04/30/19 09:21 Dose: 320 mg - Objective Vital Signs: Vital Signs Temperature 98.6 F 05/01/19 05:55 Pulse Rate 72 05/01/19 05:55 Respiratory Rate 20 05/01/19 05:55 Blood Pressure 153/82 05/01/19 05:55 O2 Sat by Pulse Oximetry (%) 98 04/30/19 09:00 Constitutional: Yes: No Distress, Calm Neck: Yes: Supple Cardiovascular: Yes: Regular Rate and Rhythm Respiratory: Yes: Regular, CTA Bilaterally Gastrointestinal: Yes: Normal Bowel Sounds, Soft Edema: No Labs: CBC, BMP 05/01/19 07:50 INR, PTT INR 1.11 (0.83-1.09) H 04/29/19 06:40 Problem List - Problems (1) Hypothyroidism Code(s): E03.9 - HYPOTHYROIDISM, UNSPECIFIED Qualifiers: Hypothyroidism type: unspecified Qualified Code(s): E03.9 - Hypothyroidism , unspecified (2) Malleolar fracture Code(s): S82.899A - OTH FRACTURE OF UNSP LOWER LEG, INIT FOR CLOS FX Qualifiers: Encounter type: initial encounter Fracture type: closed Laterality: right Qualified Code(s): S82.891A - Other fracture of right lower leg, initial encounter for closed fracture (3) Hypertensive heart disease Code(s): I11.9 - HYPERTENSIVE HEART DISEASE WITHOUT HEART FAILURE Qualifiers: Heart failure presence: without heart failure Qualified Code(s): I11.9 - Hypertensive heart disease without heart failure Assessment/Plan 04/29/2019 Echo: Normal LV and RV size and fxn LVEF 70%, mild MR, TR, AR, abnl LV compliance 1. POD#2 right ankle closed reduction and cast application 2. HTN heart disease, BP control improved 3. Hypothyroidism PLAN: 1. Continue Valsartan 320 mg QD, Amlodipine 10 mg QD, HCTZ 25 mg QD 2. Analgesia as needed, mobilize as tolerated, DVT prophylaxis, d/c planning
--- NOTE | 2019-05-01 09:23 | PN ---
Progress Note (short form) - Note Progress Note: Pt seen and examined. She is doing well, denies any pain in the right leg. She is 1 day s/p closed reduction and casting, right leg. In SLC RLE is NVI. Goos ROM of the right knee, all toes Rec Can DC from an orthopedic POV F/U with us as an out patient in 2 weeks She should be NWB or TTWB for the next 4-6 weeks
[2019-05-01 09:28] LABS: ALBUMIN 3.3 g/dl (3.4-5.0); BILIRUBIN,TOTAL 0.4 mg/dL (0.2-1); BLOOD UREA NITROGEN 9.7 mg/dL (7-18); CALCIUM 9.8 mg/dL (8.5-10.1); CREATININE 0.9 mg/dL (0.55-1.3); POTASSIUM 4.4 mmol/L (3.5-5.1); TOT PROT 6.7 g/dl (6.4-8.2)
--- NOTE | 2019-05-01 09:59 | PN ---
Teaching Attending Note Name of Resident: Miguel Ángel Barcenas ATTENDING PHYSICIAN STATEMENT I saw and evaluated the patient. I reviewed the resident's note and discussed the case with the resident. I agree with the resident's findings and plan as documented. SUBJECTIVE: Patient is comfortable with no acute distress. Temperature 98.6 F 05/01/19 05:55 Pulse Rate 72 05/01/19 05:55 Respiratory Rate 20 05/01/19 05:55 Blood Pressure 153/82 05/01/19 05:55 O2 Sat by Pulse Oximetry (%) 98 04/30/19 09:00 GENERAL: The patient is awake, alert, and oriented, in no acute distress. HEAD: Normal with no signs of trauma. EYES: PERRL, extraocular movements intact, sclera anicteric, conjunctiva clear. . ENT: Ears normal, oropharynx clear without exudates, moist mucous membranes. NECK: Trachea midline, full range of motion, supple. LUNGS: Breath sounds equal, clear to auscultation bilaterally, no wheezes, no crackles, no accessory muscle use. HEART: Regular rate and rhythm, S1, S2 positve, 2/6 DM at RUSB and LLSB. loud S2 , ABDOMEN: Soft, nontender, nondistended, normoactive bowel sounds, no guarding, no rebound, no hepatosplenomegaly, no masses. EXTREMITIES: 2+ pulses, warm, R ankle in a brace. can wiggle her toes, has normal sensation, right RLE is in the cast. Good ROM of the right knee NEUROLOGICAL: Cranial nerves II through XII grossly intact. Normal speech, gait not observed. PSYCH: Normal mood, normal affect. SKIN: Warm, dry, normal turgor, no rashes or lesions noted CBCD WBC 7.3 K/mm3 (4.0-10.0) 05/01/19 07:50 RBC 4.16 M/mm3 (3.60-5.2) 05/01/19 07:50 Hgb 9.6 GM/dL (10.7-15.3) L 05/01/19 07:50 Hct 30.7 % (32.4-45.2) L 05/01/19 07:50 MCV 73.7 fl (80-96) L 05/01/19 07:50 MCHC 31.3 g/dl (32.0-36.0) L 05/01/19 07:50 RDW 17.1 % (11.6-15.6) H 05/01/19 07:50 Plt Count 424 K/MM3 (134-434) 05/01/19 07:50 MPV 8.1 fl (7.5-11.1) 05/01/19 07:50 CMP Sodium 137 mmol/L (136-145) 05/01/19 07:50 Potassium 4.4 mmol/L (3.5-5.1) 05/01/19 07:50 Chloride 105 mmol/L (98-107) 05/01/19 07:50 Carbon Dioxide 27 mmol/L (21-32) 05/01/19 07:50 Anion Gap 5 MMOL/L (8-16) L 05/01/19 07:50 BUN 9.7 mg/dL (7-18) 05/01/19 07:50 Creatinine 0.9 mg/dL (0.55-1.3) 05/01/19 07:50 Random Glucose 120 mg/dL (74-106) H 05/01/19 07:50 Calcium 9.8 mg/dL (8.5-10.1) 05/01/19 07:50 Total Bilirubin 0.4 mg/dL (0.2-1) 05/01/19 07:50 AST 19 U/L (15-37) 05/01/19 07:50 ALT 20 U/L (13-61) 05/01/19 07:50 Alkaline Phosphatase 92 U/L (45-117) 05/01/19 07:50 Total Protein 6.7 g/dl (6.4-8.2) 05/01/19 07:50 Albumin 3.3 g/dl (3.4-5.0) L 05/01/19 07:50 CARDIAC ENZYMES Creatine Kinase 141 U/L (26-192) 04/28/19 18:50 Troponin I < 0.02 ng/ml (0.00-0.05) 04/28/19 18:50 Current Medications Generic Name Dose Route Start Last Admin Trade Name Freq PRN Reason Stop Dose Admin Acetaminophen 650 mg 04/29/19 17:27 Tylenol - PO Q4H PRN PAIN LEVEL 4 - 6 Amlodipine Besylate 10 mg 04/30/19 10:00 04/30/19 09:21 Norvasc - PO 10 mg DAILY TARA Administration Cholecalciferol 2,000 unit 04/30/19 18:45 04/30/19 21:33 Vitamin D3 - PO 2,000 unit DAILY TARA Administration Gabapentin 600 mg 04/29/19 22:00 05/01/19 07:09 Neurontin - PO 600 mg TID TARA Administration Heparin Sodium (Porcine) 5,000 unit 04/29/19 22:00 05/01/19 07:09 Heparin - SQ 5,000 unit TID TARA Administration Levothyroxine Sodium 150 mcg 04/30/19 07:00 05/01/19 07:09 Synthroid - PO 150 mcg DAILY@0700 TARA Administration Oxycodone HCl 5 mg 04/29/19 17:27 04/29/19 21:24 Roxicodone - PO 5 mg Q6H PRN Administration PAIN LEVEL 6-10 Valsartan 320 mg 04/30/19 10:00 04/30/19 09:21 Diovan - PO 320 mg DAILY TARA Administration Home Medications Medication Instructions Recorded Gabapentin 600 mg PO TID 08/02/14 Levothyroxine [Synthroid -] 150 mcg PO DAILY 08/02/14 Valsartan/Hydrochlorothiazide 1 each PO DAILY 04/28/19 [Valsartan-Hctz 320-25 mg Tab] Escitalopram Oxalate [Lexapro -] 1 tablet PO DAILY 04/29/19 Microbiology 04/28/19 23:46 Urine - Urine Elkins Urine Culture - Final NO GROWTH OBTAINED ASSESSMENT AND PLAN: Patient is an 83 y/o female with PMhx of HTN, neuropathy and hypothyroidism, who presented with R ankle pain after a fall and was found to have R ankle Fx # s/p fall ; POD#1 for closed reduction and casting ; R ankle Fx , s/p sx , pain control , further care per ortho, Weight bearing per ortho . will add VIt d3 2u DAILY. NWB or TTWB for the next 4-6 weeks as per ortho. F/U with ortho as an out patient in 2 weeks # HTN controlled: continue with valsatan, norvasc, will dc Hctz since can cause low sodium and and exacerbate her symptoms. # LBBB: echo reviewed. and EKG reviewed waiting for authorization to go to [facility]
[2019-05-01] MEDS: CHOLECALCIFEROL (VIT D3) 1,000 UNIT (25 MCG) TABLET PO SCH (10:02)
[2019-05-01] MEDS: amLODIPine BESYLATE 10 MG TABLET (FP) PO SCH (10:02)
[2019-05-01] MEDS: VALSARTAN 160 MG TABLET (UD) PO SCH (10:02)
--- NOTE | 2019-05-01 16:59 | PN ---
Physical Exam: SUBJECTIVE: Patient seen and examined 83 y/o F, w/ PMH of HTN, intentional tremors, hypothyroidism, polyneuropathy, presents s/p Fall is admitted for a Bimalleolar fx of the right ankle. Today pt is asymptomatic, afebrile and appears to be in usual state of health. Pt able to urinate and move bowels. Pt reports no overnight events. Denies f/c/n/v/d, sob, chest pain, numbness or tingling. OBJECTIVE: Last Vital Signs Temp Pulse Resp BP Pulse Ox 98.6 F 76 20 141/72 98 05/01/19 13:34 05/01/19 13:34 05/01/19 13:34 05/01/19 13:34 05/01/19 09:00 GENERAL: The patient is AOx2, in no acute distress. EYES: PERRL, extraocular movements intact, sclera anicteric, ENT: Oropharynx clear without exudates, moist mucous membranes. NECK: supple, no LAD LUNGS: Breath sounds equal, clear to auscultation bilaterally, no wheezes, no crackles, HEART: Regular rate and rhythm, S1, S2 no rub or gallop. Tricuspid murmur present on the aortic and tricuspid areas ABDOMEN: Soft, nontender, nondistended, normoactive bowel sounds, no guarding EXTREMITIES: 2+ pulses, warm. Right LE in cast, s/p surgery- ORIF. Right toes are moving and sensation intact. Left LE normal. NEUROLOGICAL: Cranial nerves II through XII grossly intact. Intention tremors present PSYCH: Normal mood, normal affect. Laboratory Results - last 24 hr CBC,CMP WBC 7.3 K/mm3 (4.0-10.0) 05/01/19 07:50 RBC 4.16 M/mm3 (3.60-5.2) 05/01/19 07:50 Hgb 9.6 GM/dL (10.7-15.3) L 05/01/19 07:50 Hct 30.7 % (32.4-45.2) L 05/01/19 07:50 MCV 73.7 fl (80-96) L 05/01/19 07:50 MCH 23.1 pg (25.7-33.7) L 05/01/19 07:50 MCHC 31.3 g/dl (32.0-36.0) L 05/01/19 07:50 RDW 17.1 % (11.6-15.6) H 05/01/19 07:50 Plt Count 424 K/MM3 (134-434) 05/01/19 07:50 MPV 8.1 fl (7.5-11.1) 05/01/19 07:50 Absolute Neuts (auto) 4.8 K/mm3 (1.5-8.0) 05/01/19 07:50 Neutrophils % 65.9 % (42.8-82.8) 05/01/19 07:50 Lymphocytes % 20.1 % (8-40) D 05/01/19 07:50 Monocytes % 6.2 % (3.8-10.2) 05/01/19 07:50 Eosinophils % 7.2 % (0-4.5) H 05/01/19 07:50 Basophils % 0.6 % (0-2.0) 05/01/19 07:50 Nucleated RBC % 0 % (0-0) 05/01/19 07:50 Retic Count 2.20 % (0.5-1.5) H 04/29/19 06:40 Sodium 137 mmol/L (136-145) 05/01/19 07:50 Potassium 4.4 mmol/L (3.5-5.1) 05/01/19 07:50 Chloride 105 mmol/L (98-107) 05/01/19 07:50 Carbon Dioxide 27 mmol/L (21-32) 05/01/19 07:50 Anion Gap 5 MMOL/L (8-16) L 05/01/19 07:50 BUN 9.7 mg/dL (7-18) 05/01/19 07:50 Creatinine 0.9 mg/dL (0.55-1.3) 05/01/19 07:50 Est GFR (CKD-EPI)AfAm 67.57 05/01/19 07:50 Est GFR (CKD-EPI)NonAf 58.30 05/01/19 07:50 POC Glucometer 92 UNITS (80-120) 04/28/19 22:27 Random Glucose 120 mg/dL (74-106) H 05/01/19 07:50 Calcium 9.8 mg/dL (8.5-10.1) 05/01/19 07:50 Phosphorus 2.6 mg/dL (2.5-4.9) 04/29/19 06:40 Magnesium 2.1 mg/dL (1.8-2.4) 04/29/19 06:40 Iron 21 ug/dL (50-175) L 04/29/19 06:40 TIBC 384 ug/dL (250-450) 04/29/19 06:40 Iron Saturation 5 % (17.5-39) L 04/29/19 06:40 Unsaturated IBC 363 ug/dL (200-275) H 04/29/19 06:40 Transferrin 297 mg/dL (200-370) 04/29/19 06:40 Ferritin 24.5 ng/ml (8-388) 04/29/19 06:40 Total Bilirubin 0.4 mg/dL (0.2-1) 05/01/19 07:50 AST 19 U/L (15-37) 05/01/19 07:50 ALT 20 U/L (13-61) 05/01/19 07:50 Alkaline Phosphatase 92 U/L (45-117) 05/01/19 07:50 Creatine Kinase 141 U/L (26-192) 04/28/19 18:50 Troponin I < 0.02 ng/ml (0.00-0.05) 04/28/19 18:50 Total Protein 6.7 g/dl (6.4-8.2) 05/01/19 07:50 Albumin 3.3 g/dl (3.4-5.0) L 05/01/19 07:50 Vitamin B12 525 pg/ml (193-986) 04/29/19 06:40 Serum Folate 18 ng/mL (3.1-17.5) H 04/29/19 06:40 TSH 0.69 uIU/ml (0.358-3.74) 04/29/19 06:40 Active Medications Current Medications Acetaminophen (Tylenol -) 650 mg PO Q4H PRN PRN Reason: PAIN LEVEL 4 - 6 Amlodipine Besylate (Norvasc -) 10 mg PO DAILY [facility] Last Admin: 05/01/19 10:02 Dose: 10 mg Cholecalciferol (Vitamin D3 -) 2,000 unit PO DAILY [facility] Last Admin: 05/01/19 10:02 Dose: 2,000 unit Docusate Sodium (Colace -) 200 mg PO HS [facility] Gabapentin (Neurontin -) 600 mg PO TID [facility] Last Admin: 05/01/19 15:32 Dose: 600 mg Heparin Sodium (Porcine) (Heparin -) 5,000 unit SQ TID [facility] Last Admin: 05/01/19 15:33 Dose: 5,000 unit Levothyroxine Sodium (Synthroid -) 150 mcg PO DAILY@0700 [facility] Last Admin: 05/01/19 07:09 Dose: 150 mcg Oxycodone HCl (Roxicodone -) 5 mg PO Q6H PRN PRN Reason: PAIN LEVEL 6-10 Last Admin: 04/29/19 21:24 Dose: 5 mg Valsartan (Diovan -) 320 mg PO DAILY [facility] Last Admin: 05/01/19 10:02 Dose: 320 mg Home Medications Medication Instructions Recorded Gabapentin 600 mg PO TID 08/02/14 Levothyroxine [Synthroid -] 150 mcg PO DAILY 08/02/14 Escitalopram Oxalate [Lexapro -] 1 tablet PO DAILY 04/29/19 Acetaminophen [Tylenol -] 650 mg PO Q6H #30 tablet 05/01/19 Amlodipine Besylate [Norvasc -] 10 mg PO DAILY tablet 05/01/19 Cholecalciferol (Vitamin D3) 2,000 unit PO DAILY tab 05/01/19 [Vitamin D3 -] Heparin - 5,000 unit SQ TID vial 05/01/19 Valsartan [Diovan] 320 mg PO DAILY tablet 05/01/19 oxyCODONE HCL [Roxicodone -] 5 mg PO Q6H PRN #10 tablet MDD 4 05/01/19 Microbiology 04/28/19 23:46 Urine - Urine [facility] Urine Culture - Final NO GROWTH OBTAINED ASSESSMENT/PLAN: 83 y/o F, w/ PMH of HTN, intentional tremors, hypothyroidism, polyneuropathy, presents s/p Fall is admitted for a Bimalleolar fx of the right ankle. #Bimalleolar fracture right ankle - X-Ray of R ankle- bimalleolar fx w/ mild displacement and widening of the space between the medial malleolus and talus - S/p Surgery-ORIF- pt doing well. - Rt LE in cast and immobilized - Tylenol 650 PO q4 prn, morphine IV prn - Echo- EF normal, impaired LV relaxation - Pt has hx of LBBB - Fall precautions - No Weight bearing - UCx- no growth As per ortho Can DC from an orthopedic POV F/U with us as an out patient in 2 weeks Pt should be NWB or TTWB for the next 4-6 weeks Just waiting for authorization to go to [facility] #HTN - BP 141/72 today Continue, as per cardio, Valsartan 320 mg QD, Amlodipine 10 mg QD, HCTZ 25 mg QD # Iron def anemia unremarkable endoscopy and colonoscopy 1 year ago. - f/u iron studies, ferritin, TIBC- consistent with iron def anemia - follow CBC closely - Hb 9.6 today - Iron supplements if needed, consider out pt # Hypothyroidism - TSH- normal (.69) - Continue Synthroid # FEN - IV-dc - monitor lytes - Sodium controlled diet #DVT ppx Heparin SQ TID #Dispo- s/p surgery, monitor BP, pain control, d/c joy after authorization, d/c pt on colace Visit type Visit type - Emergency Visit Emergency Visit: Yes ED Registration Date: 04/28/19 Care time: The patient presented to the Emergency Department on the above date and was hospitalized for further evaluation of their emergent condition. - New Patient This patient is new to me today: Yes Date on this admission: 05/02/19 - Critical Care Critical Care patient: No - Discharge Referral Referred to [facility] Med P.C.: No ATTENDING PHYSICIAN STATEMENT I saw and evaluated the patient. I reviewed the resident's note and discussed the case with the resident. I agree with the resident's findings and plan as documented. SUBJECTIVE: OBJECTIVE: ASSESSMENT AND PLAN:
[2019-05-01] MEDS ORDERED: DOCUSATE SODIUM 100 MG CAPSULE (FP) PO SCH (22:00)
[2019-05-02] MEDS: LEVOTHYROXINE NA 150 MCG TABLET PO SCH ×2 (06:05→06:30)
[2019-05-02] MEDS: GABAPENTIN 300 MG CAPSULE (FP) PO SCH ×3 (06:05→14:08)
[2019-05-02] MEDS: HEPARIN NA (PORCINE) 5,000 UNITS/ML 1ML VIAL SQ SCH ×3 (06:06→14:08)
[2019-05-02 08:21] LABS: EOS % 5.4 % (0-4.5); HEMATOCRIT 30.7 % (32.4-45.2); HEMOGLOBIN 9.8 GM/dL (10.7-15.3); LYMPH % 16.7 % (8-40); MCH 23.2 pg (25.7-33.7); MEAN CELL VOLUME 72.7 fl (80-96); MEAN PLT VOLUME 8.2 fl (7.5-11.1); MONO % 6.5 % (3.8-10.2); NEUT % 70.4 % (42.8-82.8); PLATELET COUNT 432 K/MM3 (134-434); RBC 4.22 M/mm3 (3.60-5.2); RDW 16.9 % (11.6-15.6); WHITE BLOOD COUNT 8.8 K/mm3 (4.0-10.0)
[2019-05-02 08:47] LABS: ALBUMIN 3.5 g/dl (3.4-5.0); BILIRUBIN,TOTAL 0.5 mg/dL (0.2-1); BLOOD UREA NITROGEN 13.4 mg/dL (7-18); CALCIUM 9.8 mg/dL (8.5-10.1); CREATININE 0.9 mg/dL (0.55-1.3); POTASSIUM 4.2 mmol/L (3.5-5.1); TOT PROT 7.1 g/dl (6.4-8.2)
--- NOTE | 2019-05-02 08:47 | PN ---
Teaching Attending Note Name of Resident: Miguel Ángel Barcenas ATTENDING PHYSICIAN STATEMENT I saw and evaluated the patient. I reviewed the resident's note and discussed the case with the resident. I agree with the resident's findings and plan as documented. SUBJECTIVE: Patient is feeling better with no acute distress. Vital Signs Temperature 98.2 F 05/02/19 05:45 Pulse Rate 72 05/02/19 05:45 Respiratory Rate 20 05/02/19 05:45 Blood Pressure 140/54 L 05/02/19 05:45 O2 Sat by Pulse Oximetry (%) 98 05/01/19 21:00 GENERAL: The patient is awake, alert, and oriented, in no acute distress. HEAD: Normal with no signs of trauma. EYES: PERRL, extraocular movements intact, sclera anicteric, conjunctiva clear. . ENT: Ears normal, oropharynx clear without exudates, moist mucous membranes. NECK: Trachea midline, full range of motion, supple. LUNGS: Breath sounds equal, clear to auscultation bilaterally, no wheezes, no crackles, no accessory muscle use. HEART: Regular rate and rhythm, S1, S2 positve, 2/6 DM at RUSB and LLSB. loud S2 , ABDOMEN: Soft, nontender, nondistended, normoactive bowel sounds, no guarding, no rebound, no hepatosplenomegaly, no masses. EXTREMITIES: 2+ pulses, warm, R ankle in a brace. can wiggle her toes, has normal sensation, right RLE is in the cast. Good ROM of the right knee NEUROLOGICAL: Cranial nerves II through XII grossly intact. Normal speech, gait not observed. PSYCH: Normal mood, normal affect. SKIN: Warm, dry, normal turgor, no rashes or lesions noted CBCD WBC 8.8 K/mm3 (4.0-10.0) 05/02/19 07:20 RBC 4.22 M/mm3 (3.60-5.2) 05/02/19 07:20 Hgb 9.8 GM/dL (10.7-15.3) L 05/02/19 07:20 Hct 30.7 % (32.4-45.2) L 05/02/19 07:20 MCV 72.7 fl (80-96) L 05/02/19 07:20 MCHC 32.0 g/dl (32.0-36.0) 05/02/19 07:20 RDW 16.9 % (11.6-15.6) H 05/02/19 07:20 Plt Count 432 K/MM3 (134-434) 05/02/19 07:20 MPV 8.2 fl (7.5-11.1) 05/02/19 07:20 CMP Sodium 137 mmol/L (136-145) 05/01/19 07:50 Potassium 4.4 mmol/L (3.5-5.1) 05/01/19 07:50 Chloride 105 mmol/L (98-107) 05/01/19 07:50 Carbon Dioxide 27 mmol/L (21-32) 05/01/19 07:50 Anion Gap 5 MMOL/L (8-16) L 05/01/19 07:50 BUN 9.7 mg/dL (7-18) 05/01/19 07:50 Creatinine 0.9 mg/dL (0.55-1.3) 05/01/19 07:50 Random Glucose 120 mg/dL (74-106) H 05/01/19 07:50 Calcium 9.8 mg/dL (8.5-10.1) 05/01/19 07:50 Total Bilirubin 0.4 mg/dL (0.2-1) 05/01/19 07:50 AST 19 U/L (15-37) 05/01/19 07:50 ALT 20 U/L (13-61) 05/01/19 07:50 Alkaline Phosphatase 92 U/L (45-117) 05/01/19 07:50 Total Protein 6.7 g/dl (6.4-8.2) 05/01/19 07:50 Albumin 3.3 g/dl (3.4-5.0) L 05/01/19 07:50 CARDIAC ENZYMES Creatine Kinase 141 U/L (26-192) 04/28/19 18:50 Troponin I < 0.02 ng/ml (0.00-0.05) 04/28/19 18:50 Current Medications Generic Name Dose Route Start Last Admin Trade Name Freq PRN Reason Stop Dose Admin Acetaminophen 650 mg 04/29/19 17:27 Tylenol - PO Q4H PRN PAIN LEVEL 4 - 6 Amlodipine Besylate 10 mg 04/30/19 10:00 05/01/19 10:02 Norvasc - PO 10 mg DAILY TARA Administration Cholecalciferol 2,000 unit 04/30/19 18:45 05/01/19 10:02 Vitamin D3 - PO 2,000 unit DAILY TARA Administration Docusate Sodium 200 mg 05/01/19 22:00 05/01/19 21:03 Colace - PO 200 mg HS TARA Administration Gabapentin 600 mg 04/29/19 22:00 05/02/19 06:32 Neurontin - PO 600 mg TID TARA Administration Heparin Sodium (Porcine) 5,000 unit 04/29/19 22:00 05/02/19 06:33 Heparin - SQ 5,000 unit TID TARA Administration Levothyroxine Sodium 150 mcg 04/30/19 07:00 05/02/19 06:30 Synthroid - PO 150 mcg DAILY@0700 TARA Administration Oxycodone HCl 5 mg 04/29/19 17:27 04/29/19 21:24 Roxicodone - PO 5 mg Q6H PRN Administration PAIN LEVEL 6-10 Valsartan 320 mg 04/30/19 10:00 05/01/19 10:02 Diovan - PO 320 mg DAILY TARA Administration Home Medications Medication Instructions Recorded Gabapentin 600 mg PO TID 08/02/14 Levothyroxine [Synthroid -] 150 mcg PO DAILY 08/02/14 Valsartan/Hydrochlorothiazide 1 each PO DAILY 04/28/19 [Valsartan-Hctz 320-25 mg Tab] Escitalopram Oxalate [Lexapro -] 1 tablet PO DAILY 04/29/19 Microbiology 04/28/19 23:46 Urine - Urine [facility] Urine Culture - Final NO GROWTH OBTAINED ASSESSMENT AND PLAN: Patient is an 83 y/o female with PMhx of HTN, neuropathy and hypothyroidism, who presented with R ankle pain after a fall and was found to have R ankle Fx # s/p fall ; POD#2 for closed reduction and casting ; R ankle Fx , s/p sx , pain control , further care per ortho, Weight bearing per ortho . will add VIt d3 2u DAILY. NWB or TTWB for the next 4-6 weeks as per ortho. F/U with ortho as an out patient in 2 weeks # HTN controlled: continue with valsatan, norvasc, will dc Hctz since can cause low sodium and and exacerbate her symptoms. # LBBB: echo reviewed. and EKG reviewed waiting for authorization to go to [facility]
--- NOTE | 2019-05-02 10:13 | PN ---
Progress Note (short form) - Note Progress Note: Ortho Pt seen and exmained s/p closed reduction and casting cast intact, nvi a/p NWB PT pain control d/c planning
[2019-05-02] MEDS: CHOLECALCIFEROL (VIT D3) 1,000 UNIT (25 MCG) TABLET PO SCH (10:29)
[2019-05-02] MEDS: amLODIPine BESYLATE 10 MG TABLET (FP) PO SCH (10:29)
[2019-05-02] MEDS: VALSARTAN 160 MG TABLET (UD) PO SCH (10:29)
--- NOTE | 2019-05-02 10:37 | PN ---
Progress Note, Physician History of Present Illness: POD #3 right ankle closed reduction and cast application, no complaints. BP with improved control. - Current Medication List Current Medications: Active Medications Acetaminophen (Tylenol -) 650 mg PO Q4H PRN PRN Reason: PAIN LEVEL 4 - 6 Amlodipine Besylate (Norvasc -) 10 mg PO DAILY [facility] Last Admin: 05/02/19 10:29 Dose: 10 mg Cholecalciferol (Vitamin D3 -) 2,000 unit PO DAILY [facility] Last Admin: 05/02/19 10:29 Dose: 2,000 unit Docusate Sodium (Colace -) 200 mg PO HS [facility] Last Admin: 05/01/19 21:03 Dose: 200 mg Ferrous Sulfate (Feosol -) 325 mg PO BIDWM [facility] Gabapentin (Neurontin -) 600 mg PO TID [facility] Last Admin: 05/02/19 06:32 Dose: 600 mg Heparin Sodium (Porcine) (Heparin -) 5,000 unit SQ TID [facility] Last Admin: 05/02/19 06:33 Dose: 5,000 unit Levothyroxine Sodium (Synthroid -) 150 mcg PO DAILY@0700 [facility] Last Admin: 05/02/19 06:30 Dose: 150 mcg Oxycodone HCl (Roxicodone -) 5 mg PO Q6H PRN PRN Reason: PAIN LEVEL 6-10 Last Admin: 04/29/19 21:24 Dose: 5 mg Valsartan (Diovan -) 320 mg PO DAILY [facility] Last Admin: 05/02/19 10:29 Dose: 320 mg - Objective Vital Signs: Vital Signs Temperature 98.2 F 05/02/19 05:45 Pulse Rate 72 05/02/19 05:45 Respiratory Rate 20 05/02/19 05:45 Blood Pressure 140/54 L 05/02/19 05:45 O2 Sat by Pulse Oximetry (%) 98 05/01/19 21:00 Constitutional: Yes: No Distress, Calm Neck: Yes: Supple Cardiovascular: Yes: Regular Rate and Rhythm Respiratory: Yes: Regular, CTA Bilaterally Gastrointestinal: Yes: Normal Bowel Sounds, Soft Edema: No Labs: CBC, BMP 05/02/19 07:20 05/02/19 07:20 INR, PTT INR 1.11 (0.83-1.09) H 04/29/19 06:40 Problem List - Problems (1) Hypothyroidism Code(s): E03.9 - HYPOTHYROIDISM, UNSPECIFIED Qualifiers: Hypothyroidism type: unspecified Qualified Code(s): E03.9 - Hypothyroidism , unspecified (2) Malleolar fracture Code(s): S82.899A - OTH FRACTURE OF UNSP LOWER LEG, INIT FOR CLOS FX Qualifiers: Encounter type: initial encounter Fracture type: closed Laterality: right Qualified Code(s): S82.891A - Other fracture of right lower leg, initial encounter for closed fracture (3) Hypertensive heart disease Code(s): I11.9 - HYPERTENSIVE HEART DISEASE WITHOUT HEART FAILURE Qualifiers: Heart failure presence: without heart failure Qualified Code(s): I11.9 - Hypertensive heart disease without heart failure Assessment/Plan 04/29/2019 Echo: Normal LV and RV size and fxn LVEF 70%, mild MR, TR, AR, abnl LV compliance 1. POD#3 right ankle closed reduction and cast application 2. HTN heart disease, BP control improved 3. Hypothyroidism 4. Hyponatremia 2/2 diuretics PLAN: 1. Continue Valsartan 320 mg QD, Amlodipine 10 mg QD, d/adrian HCTZ 25 mg QD 2. Analgesia as needed, mobilize as tolerated, DVT prophylaxis, d/c planning to SNF
[2019-05-02 13:20] VITALS: BP 124/67; PULSE 82; TEMP 98
--- NOTE | 2019-05-02 14:45 | DS ---
Physical Exam: SUBJECTIVE: Patient seen and examined. Pt is asymptomatic, afebrile and appears to be in usual state of health. Pt able to urinate and move bowels. Pt reports no overnight events. No pain. Denies f/c/n/v/d, sob, chest pain, numbness or tingling. OBJECTIVE: Vital Signs Period Temp Pulse Resp BP Sys/Patrick Pulse Ox Last 24 Hr 97.9 F-98.2 F 72-94 20-20 120-158/54-80 97-98 PHYSICAL EXAM GENERAL: The patient is AOx2, in no acute distress. EYES: PERRL, extraocular movements intact, sclera anicteric, ENT: Oropharynx clear without exudates, moist mucous membranes. NECK: supple, no LAD LUNGS: Breath sounds equal, clear to auscultation bilaterally, no wheezes, no crackles, HEART: Regular rate and rhythm, S1, S2 no rub or gallop. Tricuspid murmur present on the aortic and tricuspid areas ABDOMEN: Soft, nontender, nondistended, normoactive bowel sounds, no guarding EXTREMITIES: 2+ pulses, warm. Right LE in cast, s/p surgery- ORIF. Right toes are moving and sensation intact. Left LE normal. NEUROLOGICAL: Cranial nerves II through XII grossly intact. Intention tremors present PSYCH: Normal mood, normal affect. Laboratory Results - last 24 hr CBC,CMP WBC 8.8 K/mm3 (4.0-10.0) 05/02/19 07:20 RBC 4.22 M/mm3 (3.60-5.2) 05/02/19 07:20 Hgb 9.8 GM/dL (10.7-15.3) L 05/02/19 07:20 Hct 30.7 % (32.4-45.2) L 05/02/19 07:20 MCV 72.7 fl (80-96) L 05/02/19 07:20 MCH 23.2 pg (25.7-33.7) L 05/02/19 07:20 MCHC 32.0 g/dl (32.0-36.0) 05/02/19 07:20 RDW 16.9 % (11.6-15.6) H 05/02/19 07:20 Plt Count 432 K/MM3 (134-434) 05/02/19 07:20 MPV 8.2 fl (7.5-11.1) 05/02/19 07:20 Absolute Neuts (auto) 6.2 K/mm3 (1.5-8.0) 05/02/19 07:20 Neutrophils % 70.4 % (42.8-82.8) 05/02/19 07:20 Lymphocytes % 16.7 % (8-40) 05/02/19 07:20 Monocytes % 6.5 % (3.8-10.2) 05/02/19 07:20 Eosinophils % 5.4 % (0-4.5) H 05/02/19 07:20 Basophils % 1.0 % (0-2.0) 05/02/19 07:20 Nucleated RBC % 0 % (0-0) 05/02/19 07:20 Retic Count 2.20 % (0.5-1.5) H 04/29/19 06:40 Sodium 135 mmol/L (136-145) L 05/02/19 07:20 Potassium 4.2 mmol/L (3.5-5.1) 05/02/19 07:20 Chloride 101 mmol/L (98-107) 05/02/19 07:20 Carbon Dioxide 27 mmol/L (21-32) 05/02/19 07:20 Anion Gap 7 MMOL/L (8-16) L 05/02/19 07:20 BUN 13.4 mg/dL (7-18) 05/02/19 07:20 Creatinine 0.9 mg/dL (0.55-1.3) 05/02/19 07:20 Est GFR (CKD-EPI)AfAm 67.57 05/02/19 07:20 Est GFR (CKD-EPI)NonAf 58.30 05/02/19 07:20 POC Glucometer 92 UNITS (80-120) 04/28/19 22:27 Random Glucose 113 mg/dL (74-106) H 05/02/19 07:20 Calcium 9.8 mg/dL (8.5-10.1) 05/02/19 07:20 Phosphorus 2.6 mg/dL (2.5-4.9) 04/29/19 06:40 Magnesium 2.1 mg/dL (1.8-2.4) 04/29/19 06:40 Iron 21 ug/dL (50-175) L 04/29/19 06:40 TIBC 384 ug/dL (250-450) 04/29/19 06:40 Iron Saturation 5 % (17.5-39) L 04/29/19 06:40 Unsaturated IBC 363 ug/dL (200-275) H 04/29/19 06:40 Transferrin 297 mg/dL (200-370) 04/29/19 06:40 Ferritin 24.5 ng/ml (8-388) 04/29/19 06:40 Total Bilirubin 0.5 mg/dL (0.2-1) 05/02/19 07:20 AST 15 U/L (15-37) 05/02/19 07:20 ALT 19 U/L (13-61) 05/02/19 07:20 Alkaline Phosphatase 99 U/L (45-117) 05/02/19 07:20 Creatine Kinase 141 U/L (26-192) 04/28/19 18:50 Troponin I < 0.02 ng/ml (0.00-0.05) 04/28/19 18:50 Total Protein 7.1 g/dl (6.4-8.2) 05/02/19 07:20 Albumin 3.5 g/dl (3.4-5.0) 05/02/19 07:20 Vitamin B12 525 pg/ml (193-986) 04/29/19 06:40 Serum Folate 18 ng/mL (3.1-17.5) H 04/29/19 06:40 TSH 0.69 uIU/ml (0.358-3.74) 04/29/19 06:40 Current Medications Acetaminophen (Tylenol -) 650 mg PO Q4H PRN PRN Reason: PAIN LEVEL 4 - 6 Amlodipine Besylate (Norvasc -) 10 mg PO DAILY [facility] Last Admin: 05/02/19 10:29 Dose: 10 mg Cholecalciferol (Vitamin D3 -) 2,000 unit PO DAILY [facility] Last Admin: 05/02/19 10:29 Dose: 2,000 unit Docusate Sodium (Colace -) 200 mg PO HS [facility] Last Admin: 05/01/19 21:03 Dose: 200 mg Ferrous Sulfate (Feosol -) 325 mg PO BIDWM [facility] Gabapentin (Neurontin -) 600 mg PO TID [facility] Last Admin: 05/02/19 14:08 Dose: 600 mg Heparin Sodium (Porcine) (Heparin -) 5,000 unit SQ TID [facility] Last Admin: 05/02/19 14:08 Dose: 5,000 unit Levothyroxine Sodium (Synthroid -) 150 mcg PO DAILY@0700 [facility] Last Admin: 05/02/19 06:30 Dose: 150 mcg Oxycodone HCl (Roxicodone -) 5 mg PO Q6H PRN PRN Reason: PAIN LEVEL 6-10 Last Admin: 04/29/19 21:24 Dose: 5 mg Valsartan (Diovan -) 320 mg PO DAILY [facility] Last Admin: 05/02/19 10:29 Dose: 320 mg Home Medications Medication Instructions Recorded Gabapentin 600 mg PO TID 08/02/14 Levothyroxine [Synthroid -] 150 mcg PO DAILY 08/02/14 Escitalopram Oxalate [Lexapro -] 1 tablet PO DAILY 04/29/19 Acetaminophen [Tylenol -] 650 mg PO Q6H #30 tablet 05/01/19 Amlodipine Besylate [Norvasc -] 10 mg PO DAILY tablet 05/01/19 Cholecalciferol (Vitamin D3) 2,000 unit PO DAILY tab 05/01/19 [Vitamin D3 -] Heparin - 5,000 unit SQ TID vial 05/01/19 Valsartan [Diovan] 320 mg PO DAILY tablet 05/01/19 oxyCODONE HCL [Roxicodone -] 5 mg PO Q6H PRN #10 tablet MDD 4 05/01/19 Docusate Sodium [Colace -] 200 mg PO HS capsule 05/02/19 Ferrous Sulfate [Feosol] 325 mg PO BIDWM ud 05/02/19 Microbiology 04/28/19 23:46 Urine - Urine [place] Urine Culture - Final NO GROWTH OBTAINED HOSPITAL COURSE: Date of Admission:04/28/19 83 y/o F, w/ PMH of HTN, intentional tremors, hypothyroidism, polyneuropathy, presents s/p Fall is admitted for a Bimalleolar fx of the right ankle. Pt was worked up with x-rays of her foot and taken to the OR for a ORIF of her right ankle. S/p surgery pt was doing well and pain was well tolerated. Pt was discharged to [facility], with a cast on her right leg and sent home on pain meds. #Bimalleolar fracture right ankle - X-Ray of R ankle- bimalleolar fx w/ mild displacement and widening of the space between the medial malleolus and talus - S/p Surgery-ORIF- pt doing well. - Rt LE in cast and immobilized - Tylenol 650 PO q4 prn, morphine IV prn - Echo- EF normal, impaired LV relaxation - Pt has hx of LBBB - No Weight bearing - UCx- no growth As per ortho Can DC from an orthopedic POV F/U with us as an out patient in 2 weeks Pt should be NWB or TTWB for the next 4-6 weeks Date of Discharge: 05/02/19 Minutes to complete discharge: 35 Discharge Summary Problems reviewed: Yes Reason For Visit: SYNCOPE Condition: Improved - Instructions Diet, Activity, Other Instructions: You were admitted at the hospital for a right ankle fracture from a fall that required you to have surgery done. While you were here, we evaluated you with lab work, blood work, imaging including x rays of your foot which showed you had a fracture of your right ankle. You underwent surgery for repair of your fractured ankle. We treated you with pain medication to control your pain. We recommend you to attend rehabilitation to strengthen your leg and improve mobility after undergoing surgery. To relieve your pain, please take Tylenol 650 by mouth 6 times a day To treat your anemia, please take iron supplements daily and follow up with your Primary care physician Please take all your medication as prescribed Please follow up with your primary care physician in 1 week. Follow up with your orthopedic surgeon, Dr. Tayo Live, in 1 week Return to the emergency room, if you experience any unbearable pain, shortness of breath, chest pain, nausea, vomiting and worsening of your condition. Referrals: Cal Pena MD [Primary Care Provider] - Tayo Live MD [Staff Physician] - Raymond Knutson MD [Staff Physician] - Disposition: HALF-WAY FACILITY - Home Medications Comprehensive Discharge Medication List: Ambulatory Orders Gabapentin 600 mg PO TID 08/02/14 Levothyroxine [Synthroid -] 150 mcg PO DAILY 08/02/14 Escitalopram Oxalate [Lexapro -] 1 tablet PO DAILY 04/29/19 Acetaminophen [Tylenol -] 650 mg PO Q6H #30 tablet 05/01/19 Amlodipine Besylate [Norvasc -] 10 mg PO DAILY tablet 05/01/19 Cholecalciferol (Vitamin D3) [Vitamin D3 -] 2,000 unit PO DAILY tab 05/01/19 Heparin - 5,000 unit SQ TID vial 05/01/19 Valsartan [Diovan] 320 mg PO DAILY tablet 05/01/19 oxyCODONE HCL [Roxicodone -] 5 mg PO Q6H PRN #10 tablet MDD 4 05/01/19 Docusate Sodium [Colace -] 200 mg PO HS capsule 05/02/19 Ferrous Sulfate [Feosol] 325 mg PO BIDWM ud 05/02/19 This patient is new to me today: Yes Date on this admission: 05/02/19 Emergency Visit: Yes ED Registration Date: 04/28/19 Care time: The patient presented to the Emergency Department on the above date and was hospitalized for further evaluation of their emergent condition. Critical Care patient: No - Discharge Referral Referred to [facility] No ATTENDING PHYSICIAN STATEMENT I saw and evaluated the patient. I reviewed the resident's note and discussed the case with the resident. I agree with the resident's findings and plan as documented. SUBJECTIVE: OBJECTIVE: ASSESSMENT AND PLAN:
[2019-05-02] MEDS ORDERED: FERROUS SO4 325 MG TABLET (FP) PO SCH (17:30)
== END 2019-05-02 17:46 | DRG 563 ==
LOC: JER 16:07 → JERBED 17:54 → J6S 04-29 02:26
PROVIDERS: ADMIT Internal Medicine; ATTEND Internal Medicine
PROC: 2W3LX2Z Immobilization of Right Lower Extremity using Cast (ICD-10-PCS; 2019-04-29)
PROC: 0SSFXZZ Reposition Right Ankle Joint, External Approach (ICD-10-PCS; principal; 2019-04-29 16:30)
DX: S82.841A Displaced bimalleolar fracture of right lower leg, initial encounter for closed fracture (principal); E87.1 Hypo-osmolality and hyponatremia; G62.9 Polyneuropathy, unspecified; E87.6 Hypokalemia; D50.9 Iron deficiency anemia, unspecified; E03.9 Hypothyroidism, unspecified; W19.XXXA Unspecified fall, initial encounter; Y93.89 Activity, other specified; Y92.89 Other specified places as the place of occurrence of the external cause; Y99.8 Other external cause status; I44.7 Left bundle-branch block, unspecified; I16.0 Hypertensive urgency; I11.9 Hypertensive heart disease without heart failure; G25.2 Other specified forms of tremor
CPT/HCPCS: 36415; 71045-TC-FY; 73610-TC-RT-FY; 73630-TC-RT-FY; 76000-TC-FY; 80053; 81003; 82550; 82607; 82728; 82746; 82962; 83540; 83550; 83735; 84100; 84443; 84466; 84484; 85025; 85044; 85610; 85730; 86850; 86900; 86901; 87086; 93005; 93010; 93306-TC; 94760; 97116-GP; 97162-GP; 99285-25; J0131; J1644